=== PATIENT | male | born 1940 | race Caucasian/White ===

== ENCOUNTER 2018-03-03 18:21 | Emergency (ER) | payer MEDICARE ==
--- NOTE | 2018-03-03 19:16 | ED ---
Back Pain - HPI Summary HPI Summary: This is Andrew mccray Waters documenting for attending physician Matthew Parikh MD. This patient is a 77 year old M presenting to [facility] accompanied by his family members with a chief complaint of back pain that began today. The patient states that he went to sit on a park bench today at 1345 and states he had a minor fall. The patient rates the pain 7/10 in severity. Patient reports right sided rib pain. Patient denies head injury and SOB. Patient is blind. Pt denies that he needs work up for other problems despite the triage note. Pt has no other complaints at this time and has not taken any OTC medications at this time. - History of Current Complaint Chief Complaint: EDBackInjuryPain Stated Complaint: FALL/RIB PAIN Time Seen by Provider: 03/03/18 19:07 Hx Obtained From: Patient, Family/Clinical Dietician Onset/Duration: Lasting Hours, Still Present Onset/Duration: Still Present Timing: Constant Back Pain Location: Is Discrete @ - right ribs Severity Initially: Moderate Severity Currently: Moderate Pain Intensity: 7 Pain Scale Used: 0-10 Numeric Associated Signs And Symptoms: Positive: Negative - head injury and SOB. 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 Infectious Disease History: No Infectious Disease History: Denies: Traveled Outside the [place] in Last 30 Days - Family History Known Family History: Positive: Other Family History: Reviewed and non contributory - Social History Lives: With Family Alcohol Use: Rare Substance Use Type: Reports: None Smoking Status (MU): Never Smoked Tobacco Review of Systems Positive: Other - fall Negative: Shortness Of Breath Musculoskeletal: Negative - head injury Positive: Other - right sided rib pain All Other Systems Reviewed And Are Negative: Yes Physical Exam - Summary Physical Exam Summary: Appearance: Well appearing, no pain distress Skin: warm, dry, reflects adequate perfusion, no ecchymosis Head/face: normal Eyes: wearing dark glasses, patient is blind and cannot see shadows of motion. ENT: upper dentures Neck: supple, non-tender Respiratory: CTA, breath sounds present Cardiovascular: RRR, pulses symmetrical Abdomen: non-tender, soft Back: TTP around lower right ribs posteriorly Bowel Sounds: present Musculoskeletal: normal, strength/ROM intact Neuro: normal, sensory motor intact, A&Ox3 Triage Information Reviewed: Yes Vital Signs On Initial Exam: Initial Vitals Temp Pulse Resp BP Pulse Ox 99.1 F 88 19 151/98 85 03/03/18 18:28 03/03/18 18:28 03/03/18 18:28 03/03/18 18:28 03/03/18 18:28 Vital Signs Reviewed: Yes Diagnostics - Vital Signs Vital Signs Temp Pulse Resp BP Pulse Ox 03/03/18 18:43 78 12 139/92 87 03/03/18 18:28 99.1 F 88 19 151/98 85 - Laboratory Lab Statement: Any lab studies that have been ordered have been reviewed, and results considered in the medical decision making process. - Radiology Chest/rib Xray Radiology Interpretation Completed By: Radiologist - NO DISPLACED RIB FRACTURE OR PNEUMOTHORAX. ED physician has reviewed this radiology report. Back Pain Course/Dx - Course Course Of Treatment: Patient with minor fall injuring his right posterior thorax. X-rays obtained of the ribs show no fracture. Patient refused anything for pain to include ibuprofen. He was prescribed cyclobenzaprine to use as needed. He is encouraged to ice the area, take deep breaths every half hour and to follow up closely with his primary care physician. - Diagnoses Differential Diagnosis/HQI/PQRI: Positive: Other - Chest wall injury, rib fracture, muscle strain Provider Diagnoses: Rib contusion Discharge - Sign-Out/Discharge Documenting (check all that apply): Patient Departure - Discharge Plan Condition: Improved Disposition: HOME Prescriptions: Cyclobenzaprine (NF) [Cyclobenzaprine 5 MG (NF)] 5 mg PO TID PRN #10 tab PRN Reason: muscular pain Patient Education Materials: Rib Contusion (ED) Referrals: Albino Hawthorne DO [Primary Care Provider] - Additional Instructions: Ice to area. Deep breathing exercises every half hour. Tylenol, Ibuprofen as needed. Primary care follow-up is encouraged, call tomorrow to schedule appointment. - Billing Disposition and Condition Condition: IMPROVED Disposition: Home Attestation Statement Scribe Attestation: This is Andrew mccray documenting for attending physician Matthew Parikh MD. User Type: Provider with Scribe Provider Attestation: The documentation recorded by the scribe accurately reflects the service I personally performed and the decisions made by me.
--- NOTE | 2018-03-03 19:56 | RAD ---
HISTORY: fall, post R rib injury COMPARISONS: None VIEWS: 5, Frontal view of the chest with frontal and oblique views of the right hemithorax. FINDINGS: There is no displaced rib fracture or pneumothorax. The visualized lungs are clear. IMPRESSION: NO DISPLACED RIB FRACTURE OR PNEUMOTHORAX.
[2018-03-03 21:17] VITALS: BP 135/98
== END 2018-03-03 21:20 | disposition home or self-care (01) ==
LOC: ED 18:21
DX: S20.211A Contusion of right front wall of thorax, initial encounter (principal); W19.XXXA Unspecified fall, initial encounter; Y92.9 Unspecified place or not applicable
CPT/HCPCS: 99282

== ENCOUNTER 2018-04-10 22:59 | Emergency (ER) | payer MEDICARE ==
[2018-04-10] MEDS ORDERED: Ondansetron INJ* 2 MG/ML VIAL IV ONE (23:45)
[2018-04-10] MEDS ORDERED: NS 0.9% 1000 ML* 2,000 ML IV ONE (23:45)
[2018-04-10] MEDS ORDERED: fentaNYL* 50 MCG/ML 2 ML VIAL (100 MCG VIAL) IV ONE (23:45)
--- NOTE | 2018-04-10 23:53 | ED ---
HPI Chest Pain - HPI Summary HPI Summary: The pt is a 77 y.o male [facility] accompanied by his and Simon with chief c/o of left chest pain s/p fall. As per triage report, the pt denies having hit his head and denies LOC. The mechanism of the fall is described as a fall from the bottom of a step ladder at 2030 on 04/10/18. The pt was reported to be outside and fallen down. PMHx of the pt includes legal blindness. The pts hx is reported by his and Pasteur as well as the pt. The pt was able to enter the house after the fall and reported the fall to his . The pt was unable to eat according to his 04/10/18. Medication reported and he stated to be on HTN medication. Pain is aggravated upon inspiration. Neck pain is reported to be chronic and left upper abd pain is novel s/p fall. Other pain reported to be right shoulder pain. Symptoms alleviated by nothing. - History of Current Complaint Chief Complaint: EDTraumaMultiple Hx Obtained From: Patient Onset/Duration: Started Hours Ago - 2029 Timing: Constant Initial Severity: Severe Current Severity: Severe Pain Intensity: 8 Pain Scale Used: 0-10 Numeric Chest Pain Location: Left Lateral Aggravating Factor(s): Other: - Inspiration Alleviating Factor(s): Nothing Associated Signs and Symptoms: Positive: Chest Pain - left sided, Abdominal Pain - left upper, Other: - Right shoulder pain, and Chronic neck pain. 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 Infectious Disease History: No Infectious Disease History: Denies: Traveled Outside the [place] in Last 30 Days - Family History Known Family History: Positive: Other Family History: Reviewed and non contributory - Social History Occupation: Retired Lives: With Family Alcohol Use: Rare Substance Use Type: Reports: None Smoking Status (MU): Never Smoked Tobacco Review of Systems Constitutional: Negative Eyes: Other - Legally Blind ENT: Negative Positive: Chest Pain - Left sided chest pain Respiratory: Negative Positive: Abdominal Pain - left upper Genitourinary: Negative Musculoskeletal: Other - right shoulder pain Positive: Other - Negative head injury Skin: Negative Neurological: Other - Negative LOC Psychological: Normal All Other Systems Reviewed And Are Negative: Yes Physical Exam - Summary Physical Exam Summary: VITAL SIGNS: Reviewed. GENERAL: Patient is a well-developed and nourished (MALE ) who is lying comfortable in the stretcher. Patient is not in any acute respiratory distress. HEAD AND FACE: No signs of trauma. No ecchymosis, hematomas or skull depressions. No sinus tenderness. 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 Ear canals and tympanic membranes are within normal limits. MOUTH: Oropharynx within normal limits. NECK: Supple, trachea is midline, no adenopathy, no JVD, no carotid bruit, no c- spine tenderness, neck with full ROM. CHEST: Tenderness at left upper chest wall LUNGS:Decreased breath sounds CVS: Regular rate and rhythm, S1 and S2 present, no murmurs or gallops appreciated. ABDOMEN: Tenderness over the left upper quadrant EXTREMITIES: FROM in all major joints, no edema, no cyanosis or clubbing. NEURO: Alert and oriented x 3. No acute neurological deficits. Speech is normal and follows commands. Nonfocal. SKIN: Dry and warm Triage Information Reviewed: Yes Vital Signs On Initial Exam: Initial Vitals Temp Pulse Resp BP Pulse Ox 98.3 F 77 20 155/97 89 04/10/18 23:00 04/10/18 23:00 04/10/18 23:00 04/10/18 23:00 04/10/18 23:00 Vital Signs Reviewed: Yes Diagnostics - Vital Signs Vital Signs Temp Pulse Resp BP Pulse Ox 04/10/18 23:00 98.3 F 77 20 155/97 89 - Laboratory Result Diagrams: 04/11/18 00:09 04/11/18 00:09 Lab Statement: Any lab studies that have been ordered have been reviewed, and results considered in the medical decision making process. - Radiology Chest X-ray Radiology Interpretation Completed By: ED Physician - As per ED Physician, the chest x-ray revealed negative findings. The official report is pending. Shoulder X-ray Radiology Interpretation Completed By: ED Physician - As per ED Physician, the shoulder x-ray reveals negative results. The official report is pending. - CT CT C-spine CT Interpretation Completed By: Radiologist - CT C-spine reveals as per radiologist. 1. No evidence of acute fracture involving cervical vertebral bodies or posterior elements. 2. Multilevel degenerative cervical disc disease and facet disease. No significant central canal stenosis. Variable degrees of neural foraminal narrowing secondary to degenerative changes of the uncovertebral joints and facet joints. 3. Scattered small focal brain parenchymal calcification. ED Physician has reviewed this radiology report. CT Brain CT Interpretation Completed By: Radiologist - CT Brain reveals as per radiologist, 1. No evidence of acute intracranial hemorrhage. No intracranial mass or mass effect. 2. Scattered calcified H. and within the brain parenchyma. This involves the lee matter, subcortical white matter, periventricular white matter and in the ependymal surface. This raises the possibility of an infectious process. This may be related to a in utero infection of the TORCH like pathogens. Other considerations would be cysticercosis. 3. 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 4. 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 But may be due to other gliotic cord demyelinating processes. The ED physician has reviewed this radiology report. CT Chest/Abd/Pelvic CT Interpretation Completed By: Radiologist - CT Chest/Abd/Pelvic reveals as per radiologist Aneurysmal dilatation of the ascending thoracic aorta. Linear atelectasis and/or fibrosis in the lower lobes bilaterally. Mild dextrocurvature of the thoracic spine. 2. Multiple hepatic cysts. Right renal cortical cyst. Prostatectomy Bilateral groin surgery. Colonic diverticulosis. Multilevel degenerative disease. The ED Physician has reviewed this radiology report. - EKG 2351 EKG Rhythm: Sinus Rhythm - [address] Segment: Non-Specific EKG Interpretation: Normal [place], and Normal intervals at 2351 Chest Pain Course/Dx - Course Course Of Treatment: The pt is a 77 y/o male with a c/o of left sided chest pain , and right shoulder pain s/p fall. Pt received a hard C-spine collar upon initial evaluation. He also received an EKG at the [facility]. The pt also received CT C-spine, CT Chest/Abd/Pelvic, CT Brain, Shoulder X-ray and [facility]. We discussed the CT, imaging and lab findings with the pt and the family. Upon discussion of the CT chest results that showed signs of aortic aneurysm; we recommended to to follow up with PCP followup as well as cardiothoracic within 1 to 2 days. The pt will be discharged home with the dx of contusion, and ascending aortic aneurysm. We recommened percocot for pain and warm and cold compressions. - Diagnoses Provider Diagnoses: Contusion, Ascending aortic aneurysm Discharge - Sign-Out/Discharge Documenting (check all that apply): Patient Departure - Discharge Home, Post- Discharge Follow Up - Recommendation to visit Cardiothoracic Surgeon - Discharge Plan Condition: Stable Disposition: HOME Prescriptions: oxyCODONE/Acetamin 5/325 MG* [Percocet 5/325 TAB*] 1 tab PO Q6H PRN #20 tab MDD 4 PRN Reason: Pain Patient Education Materials: Thoracic Aortic Aneurysm (ED) Referrals: Albino Hawthorne DO [Primary Care Provider] - Enmanuel ANDERSON,Mason Sun [Medical Doctor] - Additional Instructions: WE RECOMMEND FOLLOW UP WITH PCP AND CARDIOTHORACIC SURGEON WITHIN 1 to 2 DAYS ( Referral). We recommened percocot for pain and warm and cold compressions. RETURN TO THE EMERGENCY DEPARTMENT FOR CHANGING OR WORSENING SYMPTOMS. - Attestation Statements Document Initiated by Scribe: Yes Documenting Scribe: Moi Terrazas Provider For Whom Scribe is Documenting (Include Credential): Dr. Rosa Isela Beltran Scribe Attestation: Moi Dean, jenny for Dr. Rosa Isela Beltran on 04/11/18 at 0332.
[2018-04-11 00:41] LABS: ABS Basophils 0 10^3/ul (0-0.2); ABS Eosinophils 0 10^3/ul (0-0.6); ABS Lymphocytes 0.8 10^3/ul (1.0-4.8); ABS Monocytes 0.7 10^3/ul (0-0.8); ABS Neutrophils 12.9 10^3/ul (1.5-7.7); ABS Nucleated RBC 0 10^3/ul; Eosinophil % 0 % (0-6); Hematocrit 47 % (42-52); Hemoglobin 15.6 g/dl (14.0-18.0); INR 0.96 (0.77-1.02); Lymphocyte % 5.4 % (25-47); Mean Corpuscular HGB Conc 33 g/dl (31-36); Mean Corpuscular Hemoglobin 31 pg (27-31); Mean Corpuscular Volume 94 fL (80-94); Mean Platelet Volume 7.5 um3 (7.4-10.4); Nucleated Red Blood Cells % 0.1; Platelet Count 229 10^3/ul (150-450); Red Blood Count 4.99 10^6/ul (4.00-5.40); Red Cell Distribution Width 14 % (10.5-15); White Blood Count 14.3 10^3/ul (3.5-10.8)
[2018-04-11] MEDS ORDERED: fentaNYL* 50 MCG/ML 2 ML VIAL (100 MCG VIAL) IV SLOW PU ONE (00:50)
[2018-04-11] MEDS ORDERED: Iohexol 300* (CONTRAST) 10 ML SDV IV ONE (01:20)
--- NOTE | 2018-04-11 02:07 | RAD ---
EXAM: CT Chest With Intravenous Contrast CLINICAL HISTORY: 77 years old, male; Injury or trauma; Fall TECHNIQUE: Axial computed tomography images of the chest with intravenous contrast. All CT scans at this facility use at least one of these dose optimization techniques: automated exposure control; mA and/or kV adjustment per patient size (includes targeted exams where dose is matched to clinical indication); or iterative reconstruction. Coronal and sagittal reformatted images were created and reviewed. CONTRAST: 85 mL of OMNI administered intravenously. COMPARISON: No relevant prior studies available. FINDINGS: Lungs: There is increased haziness of the dependent portions of the lower lobes suggesting dependent congestion. Linear atelectasis and/or fibrosis is seen in the lower lobes bilaterally. Pleural space: Unremarkable. No pneumothorax. No significant effusion. Heart: Unremarkable. No cardiomegaly. No significant pericardial effusion. Bones/joints: There is mild dextrocurvature of the thoracic spine. There is narrowing of the intervertebral disc space at T6-7 with ankylosis. No acute fracture. No dislocation. Soft tissues: Unremarkable. Vasculature: There is aneurysmal dilatation of the ascending thoracic aorta which has diameters of 4.5 x 5.3 cm Lymph nodes: Unremarkable. No enlarged lymph nodes. IMPRESSION: Aneurysmal dilatation of the ascending thoracic aorta. Linear atelectasis and/or fibrosis in the lower lobes bilaterally. Mild dextrocurvature of the thoracic spine. EXAM: CT Abdomen and Pelvis With Intravenous Contrast CLINICAL HISTORY: 77 years old, male; Injury or trauma; Fall TECHNIQUE: Axial computed tomography images of the abdomen and pelvis with intravenous contrast. All CT scans at this facility use at least one of these dose optimization techniques: automated exposure control; mA and/or kV adjustment per patient size (includes targeted exams where dose is matched to clinical indication); or iterative reconstruction. Coronal and sagittal reformatted images were created and reviewed. CONTRAST: 85 mL of OMNI administered intravenously. 85 mL of OMNI administered intravenously. COMPARISON: No relevant prior studies available. FINDINGS: Lung bases: Unremarkable. No mass. No consolidation. ABDOMEN: Liver: There are multiple low density lesions scattered throughout the liver. The largest lesion is lobulated in shape and lies in the right lobe of the liver with a maximum measurement of 6.6 cm. Gallbladder and bile ducts: Unremarkable. No calcified stones. No ductal dilation. Pancreas: Unremarkable. No mass. No ductal dilation. Spleen: Unremarkable. No splenomegaly. Adrenals: Unremarkable. No mass. Kidneys and ureters: Right renal cortical cyst is identified measuring approximately 1 cm. No hydronephrosis. Stomach and bowel: Colonic diverticula are demonstrated but there is no evidence for acute diverticulitis. No obstruction. PELVIS: Appendix: The appendix is normal in appearance. Bladder: Unremarkable. No mass. Reproductive: The patient status post prostatectomy. ABDOMEN and PELVIS: Intraperitoneal space: Unremarkable. No free air. No significant fluid collection. Bones/joints: Multilevel degenerative disc disease is noted. No acute fracture. No dislocation. Soft tissues: Surgical clips are seen in the groin areas bilaterally. Vasculature: Arteriosclerotic changes are identified. No abdominal aortic aneurysm. Lymph nodes: Unremarkable. No enlarged lymph nodes. IMPRESSION: Multiple hepatic cysts. Right renal cortical cyst. Prostatectomy Bilateral groin surgery. Colonic diverticulosis. Multilevel degenerative disease.
--- NOTE | 2018-04-11 02:18 | RAD ---
EXAM: CT Head Without Intravenous Contrast CLINICAL HISTORY: 77 years old, male; Injury or trauma; Fall; Initial encounter; Abrasion; Not specified TECHNIQUE: Axial computed tomography images of the head/brain without intravenous contrast. All CT scans at this facility use at least one of these dose optimization techniques: automated exposure control; mA and/or kV adjustment per patient size (includes targeted exams where dose is matched to clinical indication); or iterative reconstruction. COMPARISON: No relevant prior studies available. FINDINGS: Brain: No evidence of acute intracranial hemorrhage. No intracranial mass or mass effect. Multiple calcified densities located in the lee matter subcortical white matter and periventricular white matter. Geographic areas of diminished density in the subcortical and periventricular white matter. Focal hypodensities located in the right thalamus. Linear hypodensity located in the right and in the inferior aspect the left cerebellar hemisphere. Ventricles: Unremarkable. No ventriculomegaly. Bones/joints: Unremarkable. No acute fracture. Soft tissues: Unremarkable. Vasculature: Vascular calcification. Sinuses: Unremarkable as visualized. No acute sinusitis. Mastoid air cells: Unremarkable as visualized. No mastoid effusion. Orbits: Right globe prosthesis. Phthisical left globe. IMPRESSION: 1. No evidence of acute intracranial hemorrhage. No intracranial mass or mass effect. 2. Scattered calcified H. and within the brain parenchyma. This involves the lee matter, subcortical white matter, periventricular white matter and in the ependymal surface. This raises the possibility of an infectious process. This may be related to a in utero infection of the TORCH like pathogens. Other considerations would be cysticercosis. 3. 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 4. 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 But may be due to other gliotic cord demyelinating processes.
--- NOTE | 2018-04-11 02:22 | RAD ---
EXAM: CT Cervical Spine Without Intravenous Contrast CLINICAL HISTORY: 77 years old, male; Injury or trauma; Fall; Initial encounter; Abrasion TECHNIQUE: Axial computed tomography images of the cervical spine without intravenous contrast. All CT scans at this facility use at least one of these dose optimization techniques: automated exposure control; mA and/or kV adjustment per patient size (includes targeted exams where dose is matched to clinical indication); or iterative reconstruction. Coronal and sagittal reformatted images were created and reviewed. COMPARISON: No relevant prior studies available. FINDINGS: Vertebrae: No evidence of acute fracture involving cervical vertebral bodies or posterior elements. Discs/spinal canal/neural foramina: Multilevel degenerative cervical disc disease and facet disease. No central canal stenosis. Variable degrees of neural foramina narrowing secondary degenerative changes of the uncovertebral joints and facet joints. Soft tissues: Unremarkable. Lung apices: Unremarkable as visualized. Other findings: The head is rotated to the right side. CT of lower brain and posterior fossa: Punctate calcification located in the brain parenchyma. IMPRESSION: 1. No evidence of acute fracture involving cervical vertebral bodies or posterior elements. 2. Multilevel degenerative cervical disc disease and facet disease. No significant central canal stenosis. Variable degrees of neural foraminal narrowing secondary to degenerative changes of the uncovertebral joints and facet joints. 3. Scattered small focal brain parenchymal calcification.
[2018-04-11 02:23] LABS: Urine Appearance Clear; Urine Blood Negative (Negative); Urine Color Yellow; Urine Ketones 1+ (Negative); Urine Protein Negative (Negative); Urine Specific Gravity 1.026 (1.010-1.030); Urine Urobilinogen Negative (Negative)
[2018-04-11 03:39] VITALS: BP 155/99
--- NOTE | 2018-04-11 07:54 | RAD ---
INDICATION: Fall. COMPARISON: There are no relevant prior studies available for comparison. TECHNIQUE: A portable view of the chest was obtained. FINDINGS: Cardiac and mediastinal contours appear to be within normal limits. The lungs are underinflated. There are small bibasilar infiltrates suggestive of atelectasis less likely pneumonia. No pleural effusion is seen. There appears to be a interposition of the colon and small bowel between the right hemidiaphragm and liver. IMPRESSION: LOW LUNG VOLUMES SMALL BIBASILAR INFILTRATES SUGGESTIVE OF ATELECTASIS LESS LIKELY PNEUMONIA. R1
--- NOTE | 2018-04-11 07:54 | RAD ---
INDICATION: Right shoulder pain after a fall COMPARISON: None. TECHNIQUE: 2 views of the right shoulder were obtained. FINDINGS: The adequately corticated bones are in normal alignment. Joint spaces appear maintained. No fracture, dislocation or focal bony abnormality is seen. IMPRESSION: Normal radiograph of the right shoulder. If the patient's symptoms persist, follow-up imaging is recommended. R0
--- NOTE | 2018-04-11 17:33 | ED ---
Progress - Progress Note Progress Note: Patient's final chest x-ray reveals "impression: Low lung volumes small bibasilar infiltrate suggestive of atelectasis less likely pneumonia". Patient was seen for fall down stairs and this chest x-ray was ordered to assess trauma. He also had a lung CT which was negative. Patient did not have a fever nor chills at time of visit and has not had any respiratory symptoms leading up to this fall per , Reyna, who I spoke with today. She denies that he's had a fever at home nor has he had any difficulty with breathing or coughing. She reports he's got a follow-up with his primary next week but will return to the emergency department if patient develops danger signs and symptoms. She does not believe he has any signs or symptoms of pneumonia at this time but she is aware to keep an eye out for this condition. Course/Dx - Course Course Of Treatment: The pt is a 77 y/o male with a c/o of left sided chest pain , and right shoulder pain s/p fall. Pt received a hard C-spine collar upon initial evaluation. He also received an EKG at the [facility]. The pt also received CT C-spine, CT Chest/Abd/Pelvic, CT Brain, Shoulder X-ray and Chest X-ray in the [facility]. We discussed the CT, imaging and lab findings with the pt and the family. Upon discussion of the CT chest results that showed signs of aortic aneurysm; we recommended to to follow up with PCP followup as well as cardiothoracic within 1 to 2 days. The pt will be discharged home with the dx of contusion, and ascending aortic aneurysm. We recommened percocot for pain and warm and cold compressions. - Diagnoses Provider Diagnoses: Contusion, Ascending aortic aneurysm Discharge - Sign-Out/Discharge Documenting (check all that apply): Post-Discharge Follow Up - Discharge Plan Condition: Stable Disposition: HOME Prescriptions: oxyCODONE/Acetamin 5/325 MG* [Percocet 5/325 TAB*] 1 tab PO Q6H PRN #20 tab MDD 4 PRN Reason: Pain Patient Education Materials: Thoracic Aortic Aneurysm (ED) Referrals: Enmanuel ANDERSON,Mason Sun [Medical Doctor] - Albino Hawthorne DO [Primary Care Provider] - Additional Instructions: WE RECOMMEND FOLLOW UP WITH PCP AND CARDIOTHORACIC SURGEON WITHIN 1 to 2 DAYS ( Referral). We recommened percocot for pain and warm and cold compressions. RETURN TO THE EMERGENCY DEPARTMENT FOR CHANGING OR WORSENING SYMPTOMS. - Billing Disposition and Condition Condition: STABLE Disposition: Home
== END 2018-04-11 03:38 | disposition home or self-care (01) ==
LOC: ED 22:59
DX: I71.9 Aortic aneurysm of unspecified site, without rupture (principal); S40.011A Contusion of right shoulder, initial encounter; M25.511 Pain in right shoulder; W19.XXXA Unspecified fall, initial encounter; Y92.9 Unspecified place or not applicable
CPT/HCPCS: 36415; 70450; 71045; 71260; 72125; 74177; 80053; 81003; 82150; 82550; 83605; 83690; 85025; 85610; 86850; 86900; 86901; 93005; 96374; 96375; 99284; J2405; J3010; Q9967

== ENCOUNTER 2019-01-28 11:32 | Emergency (ER) | payer MEDICARE ==
--- OUTSIDE RECORDS SUMMARY | 2019-01-28 13:19 | XMS REPORT | Continuity of Care Document ---
:1940 External Reference #:[id number] Author Name Albino Hawthorne D.O. Address [address] [place] [address] Care Team Providers Name Role Phone HCP/LW on file Primary Care Physician Unavailable Payers Date Identification Numbers Payment Provider Subscriber Effective: 2005 Policy Number: [id number] [employer] Yun Sadler PayID: [id number] [address] [place] [id number] Problems Active Problems Provider Date History of malignant neoplasm of prostate Devendra Sharma M.D. Onset: 10/2008 Slow transit constipation Devendra Sharma M.D. Onset: 05/11/2011 Essential hypertension Devendra Sharma M.D. 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 Onset: 03/19/2009 Inactive: 11/03/2010 Benign essential hypertension Devendra Sharma M.D. Onset: 12/21/2011 Inactive: 12/18/2016 Family History Date Family Member(s) Observation Comments General Cancer Father and mother General Stroke Mother TIA Father in 1976 at 65 years old from heart attack. Mother in 2002 at the age of 90 First Daughter Jenny Hargrove First Daughter 04-06-71 Second Daughter Fide Rios Second Daughter 04-07-74 Third Daughter Deedee Sadler Third Daughter 06-04-77 Number of Siblings 1 brother and 2 sisters, in 2016 one of pt's sister from Leukemia at ~ age 69 First Brother due to Hole In His Heart At 4 () Years Old First Brother Keith Social History Type Date Description Comments Sex Unknown Marital Status Patient is His , Reyna, June 2018 General Highest level of education is 12th grade. 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 Does not drink alcohol or use drugs. Moderate amount of sun exposure. Does not use sunscreen. Tobacco Use Start: Unknown Tobacco Of Any Kind Denies Use Tobacco Use Reviewed: 06/29/14 Denies Cigarette Use Tobacco Use Reviewed: 12/28/14 Non Smoker Smoking Status Reviewed: 01/10/19 Non Smoker Allergies, Adverse Reactions, Alerts Description No Known Drug Allergies Medications Active Medications SIG Qnty Indications Ordering Date Provider Metoprolol Succinate take 1 tablet by Unknown 06/03/2018 ER mouth daily 25mg Tablets ER 24HR Vitamin D3 1 by mouth daily Unknown 03/07/2018 1200Units when no sun Capsules Shingrix 1 shot repeat 1units Albino Hawthorne, 02/07/2018 50mcg Suspension once in 2 months D.O. Rec Red Yeast Rice take one capsule Unknown 02/06/2018 600mg by mouth daily Capsules Lisinopril take 1 tablet by 90tabs I10 Albino Hawthorne, 07/05/2017 20mg Tablets mouth once daily D.O. for high blood pressure Aspirin prn 1-2 week. Devendra Calderon 12/28/2014 81mg Tablets Hussein Sharma Glucosamine 1500 1 a day Devendra Calderon 05/28/2012 Complex Hussein Sharma 1500Com Capsules Magnesium Oxide OTC K59.01 Devendra Calderon 05/11/2011 250mg Hussein Sharma Tablets Metamucil uses po prn 1 K59.01 Devendra Calderon 05/11/2011 48.57% Powder tsp - urged to Hussein Sharma use 1 tbsp prn Multivitamins 1 po qd 100tabs Unknown 04/24/2010 Tablets Vitamin C prn Unknown 04/24/2010 Tabs Zinc prn Unknown 04/24/2010 Coq10 Unknown History Medications Oxycodone-Acetaminophen take 1 tablet by Unknown 04/10/2018 - 5-325mg Tablets mouth every 6 04/21/2018 hours if needed for pain Red Yeast Rice every other day Devendra Calderon 07/03/2016 - 600mg Capsules Hussein Sharma 02/06/2018 Lisinopril 1 by mouth every 90tabs I10 Devendra Calderon 07/03/2016 - 10mg Tablets day Hussein Sharma 07/05/2017 Hydrochlorothiazide 1/2 every day 90tabs I10 Devendra Calderon 12/26/2012 - 25mg Tablets for bp Hussein Sharma 06/05/2016 Triamcinolone Acetonide apply to area 30gm E906.3 Devendra Calderon 12/07/2012 - 0.5% Ointment bid to tid prn Hussein Sharma 03/07/2013 rash HCTZ 25mg 1 qd for blood 90tabs 401.1 Devendra Calderon 12/20 - Tablets pressure Hussein Sharma 12/26/2012 Red Yeast Rice Extract Devendra Calderon 05/11/2011 - 600mg Capsules Hussein Sharma 07/03/2016 Cephalexin 1 tablet bid x 7 14caps 682.6 Silcopb, 12/27/2009 - 500mg Capsules days Hussein Montague 04/24/2010 HCTZ 25mg 1 qd for blood 90tabs 401.1 Devendra Calderon 09/09 - Tablets pressure with Hussein Sharma 11/02/2010 orange juice Acetazolamide as prescribed by 365.9 Jose R, 05/11/2009 - 250mg Tablets asher Medina, 05/21/2009 post op glaucoma Vitamins Multiple Unknown - Tablets 03/18/2009 Prednisolone ac 1% Eye Drop Unknown - Solution 05/10/2011 Atropine Sulfate 1 drop in eye to Unknown - 1% Solution dry secretions 05/10/2011 prn when directed by Magnesium Citrate 1 po at Unknown - 125mg Capsule suppertime 12/27/2014 Immunizations CPT Code Status Date Vaccine Lot # [id number] Given 03/08/2018 Influenza Vaccine Split Virus Preservative Free Im [id number] Use [id number] Given 07/05/2017 Influenza Virus Vaccine, Quadrivalent, Split, [id number] Preservative Free 30496 Given 07/03/2016 Influenza Virus Vaccine, Quadrivalent, Split, [id number] Preservative Free 94702 Given 12/28/2014 Prevnar 13 [id number] 34246 Given 06/29/2014 Adacel or Boostrix, TDaP [id number] 42678 Given 06/29/2014 Influenza Virus Vaccine, Quadrivalent, Split, [id number] Preservative Free 34741 Given 04/22/2009 Pneumococcal Immunization [id number] 08263 Given 03/19/2009 Td Immunization [id number] U-Flu Refused 07/01/2015 Influenza,Unspecified [id number] Refused 06/29/2014 Flu, Split Virus 3Yrs 90094 Refused 06/27/2013 Flu, Split Virus 3Yrs 10265 Refused 05/31/2012 Flu, Split Virus 3Yrs 61654 Refused 05/11/2011 Flu, Split Virus 3Yrs 21458 Refused 04/25/2010 Flu, Split Virus 3Yrs 12968 Refused 04/22/2009 Flu, Split Virus 3Yrs Vital Signs Date Vital Result Comment 01/10/2019 12:14pm BP Systolic 110 mmHg BP Diastolic 80 mmHg Weight 150.00 lb with shoes 12/27/2018 2:05pm BP Systolic 118 mmHg BP Diastolic 80 mmHg Height 64 inches 5'4" w/shoes Weight 153.00 lb w/shoes BMI (Body Mass Index) 26.3 kg/m2 07/17/2018 2:12pm BP Systolic 116 mmHg BP Diastolic 68 mmHg Height 64 inches 5'4" Weight 130.00 lb BMI (Body Mass Index) 22.3 kg/m2 04/23/2018 2:43pm BP Systolic 128 mmHg BP Diastolic 84 mmHg 04/12/2018 1:57pm BP Systolic 110 mmHg BP Diastolic 74 mmHg Heart Rate 66 /min O2 % BldC Oximetry 90 % Weight 152.00 lb with shoes 03/08/2018 2:31pm BP Systolic 108 mmHg BP Diastolic 74 mmHg O2 % BldC Oximetry 94 % 02/07/2018 3:34pm BP Systolic 106 mmHg BP Diastolic 62 mmHg Weight 147.00 lb 07/05/2017 2:20pm BP Systolic 142 mmHg BP Diastolic 82 mmHg BP Systolic Recheck 126 mmHg recheck ra BP Diastolic Recheck 88 mmHg recheck ra Height 63 inches 5'3" Weight 148.00 lb BMI (Body Mass Index) 26.2 kg/m2 12/18/2016 2:04pm BP Systolic 112 mmHg BP Diastolic 61 mmHg Heart Rate 65 /min Respiratory Rate 16 /min Weight 147.00 lb 07/03/2016 11:02am BP Systolic 152 mmHg BP Diastolic 88 mmHg Height 64.75 inches 5'4.75" Weight 146.00 lb BMI (Body Mass Index) 24.5 kg/m2 12/30/2015 11:20am BP Systolic 130 mmHg BP Diastolic 82 mmHg Height 63.25 inches 5'3.25" Weight 146.00 lb BMI (Body Mass Index) 25.7 kg/m2 07/01/2015 10:54am BP Systolic 128 mmHg k BP Diastolic 84 mmHg k Heart Rate 80 /min Respiratory Rate 18 /min Weight 143.00 lb 12/28/2014 1:01pm BP Systolic 104 mmHg k BP Diastolic 76 mmHg k Heart Rate 70 /min Respiratory Rate 16 /min Height 63.5 inches 5'3.50" Weight 146.00 lb BMI (Body Mass Index) 25.5 kg/m2 06/29/2014 10:49am BP Systolic 140 mmHg BP Diastolic 80 mmHg Height 63.75 inches 5'3.75" Weight 149.00 lb BMI (Body Mass Index) 25.8 kg/m2 12/22/2013 11:33am BP Systolic 121 mmHg wk BP Diastolic 80 mmHg wk Heart Rate 70 /min Respiratory Rate 16 /min Height 64.50 inches 5'4.50" Weight 154.00 lb BMI (Body Mass Index) 26.0 kg/m2 06/27/2013 10:55am BP Systolic 124 mmHg BP Diastolic 88 mmHg Heart Rate 70 /min Respiratory Rate 17 /min Height 65 inches 5'5" Weight 154.00 lb BMI (Body Mass Index) 25.6 kg/m2 12/26/2012 11:26am BP Systolic 106 mmHg BP Diastolic 68 mmHg Weight 146.00 lb 12/07/2012 11:29am BP Systolic 128 mmHg BP Diastolic 80 mmHg Body Temperature 97.5 F Height 64 inches 5'4" Weight 149.00 lb BMI (Body Mass Index) 25.6 kg/m2 05/31/2012 11:02am BP Systolic 140 mmHg BP Diastolic 88 mmHg BP Systolic Recheck 130 mmHg BP Diastolic Recheck 84 mmHg Heart Rate 70 /min Respiratory Rate 16 /min Height 64 inches 5'4" Weight 154.00 lb BMI (Body Mass Index) 26.4 kg/m2 Last Menstrual Period 0 12/21/2011 11:52am BP Systolic 140 mmHg BP Diastolic 96 mmHg BP Systolic Recheck 150 mmHg 143 96 large adult cuff BP Diastolic Recheck 95 mmHg 143 96 large adult cuff Heart Rate 70 /min rrr Respiratory Rate 16 /min Height 65 inches 5'5" Weight 153.00 lb BMI (Body Mass Index) 25.5 kg/m2 Last Menstrual Period 0 05/11/2011 1:47pm BP Systolic 138 mmHg BP Diastolic 90 mmHg BP Systolic Recheck 138 mmHg BP Diastolic Recheck 88 mmHg Heart Rate 98 /min Height 65 inches 5'5" Weight 155.00 lb BMI (Body Mass Index) 25.8 kg/m2 11/03/2010 11:54am BP Systolic 164 mmHg BP Diastolic 110 mmHg BP Systolic Recheck 150 mmHg BP Diastolic Recheck 94 mmHg Heart Rate 70 /min Respiratory Rate 17 /min 04/25/2010 11:46am BP Systolic 128 mmHg BP Diastolic 78 mmHg Heart Rate 70 /min Respiratory Rate 16 /min 12/27/2009 2:35pm BP Systolic 110 mmHg BP Diastolic 70 mmHg Body Temperature 97.6 F Weight 152.00 lb Last Menstrual Period 0 12/16/2009 1:49pm BP Systolic 106 mmHg BP Diastolic 70 mmHg Heart Rate 69 /min Body Temperature 98.2 F Weight 149.00 lb 09/14/2009 4:11pm BP Systolic 132 mmHg BP Diastolic 90 mmHg BP Systolic Recheck 129 mmHg BP Diastolic Recheck 88 mmHg Heart Rate 70 /min Respiratory Rate 16 /min Weight 157.00 lb Last Menstrual Period 0 09/09/2009 12:25pm BP Systolic 155 mmHg BP Diastolic 93 mmHg BP Systolic Recheck 163 mmHg BP Diastolic Recheck 93 mmHg Heart Rate 70 /min Respiratory Rate 16 /min 07/22/2009 1:20pm BP Systolic 130 mmHg BP Diastolic 86 mmHg BP Systolic Recheck 133 mmHg BP Diastolic Recheck 84 mmHg Heart Rate 70 /min Respiratory Rate 16 /min Body Temperature 98.2 F Weight 159.00 lb Last Menstrual Period 0 05/11/2009 11:03am BP Systolic 150 mmHg 140/90 rt. 130/80 lt arm BP Diastolic 92 mmHg 140/90 rt. 130/80 lt arm Body Temperature 98.4 F Weight 157.00 lb 04/22/2009 9:37am BP Systolic 146 mmHg BP Diastolic 78 mmHg Heart Rate 60 /min Body Temperature 97.7 F Weight 152.00 lb Last Menstrual Period 0 03/19/2009 2:52pm BP Systolic 130 mmHg BP Diastolic 90 mmHg BP Systolic Recheck 146 mmHg BP Diastolic Recheck 78 mmHg Heart Rate 70 /min Respiratory Rate 16 /min Weight 157.00 lb 08/16/2005 1:33pm BP Systolic 140 mmHg BP Diastolic 80 mmHg Height 64.25 inches 5'4.25" Weight 154.50 lb BMI (Body Mass Index) 26.3 kg/m2 Results Test Date Facility Test Result H/L Range Note Basic Metabolic Panel 12/27/2018 [facility] Sodium 141 mmol/L N 135- 145 [phone] Potassium 4.5 mmol/L N 3.5-5.0 Chloride 108 mmol/L N 101-111 Co2 Carbon Dioxide 26 mmol/L N 22-32 Anion Gap 7 mmol/L N 2-11 Glucose 102 mg/dL High 70-100 Blood Urea Nitrogen 24 mg/dL N 6-24 Creatinine 0.91 mg/dL N 0.67-1.17 BUN/Creatinine Ratio 26.4 High 8-20 Calcium 9.2 mg/dL N 8.6-10.3 Egfr Non- 80.6 >60 Egfr 97.5 >60 1 Basic Metabolic Panel 07/18/2018 [facility] Sodium 141 mmol/L N 135- 145 2 [phone] Potassium 4.5 mmol/L N 3.5-5.0 Chloride 107 mmol/L N 101-111 Co2 Carbon Dioxide 27 mmol/L N 22-32 Anion Gap 7 mmol/L N 2-11 Glucose 92 mg/dL N 70-100 Blood Urea Nitrogen 20 mg/dL N 6-24 Creatinine 0.99 mg/dL N 0.67-1.17 BUN/Creatinine Ratio 20.2 High 8-20 Calcium 9.5 mg/dL N 8.6-10.3 Egfr Non- 73.1 >60 Egfr 88.5 >60 3 Laboratory test finding 07/18/2018 [facility] Ast (Sgot) 14 U/L N 13- 39 4 [phone] Lipid Profile 07/18/2018 [facility] Triglycerides 80 mg/dL 5 (Trig/Chol/HDL) [phone] Cholesterol 208 mg/dL 6 HDL Cholesterol 65.0 mg/dL 7 LDL Cholesterol 127 mg/dL 8 Laboratory test 07/18/2018 [facility] PSA Screening < 0.008 ng/mL N 0 -4.000 9 finding [phone] Laboratory test 07/17/2018 [facility] PSA Diagnostic < 0.008 ng/mL N 0-4.000 10 finding [phone] TSH (Thyroid Stim Horm) 1.56 mcIU/mL N 0.34-5.60 Quantiferon Gold 07/17/2018 [facility] QuantiFERON-Tb Gold Negative Negative 11 TB [phone] Plus TB1 Ag minus Nil Result 0 IU/mL TB2 Ag minus Nil Result 0 IU/mL TB Mitogen minus Nil Result 6.48 IU/mL TB Nil Result 0.01 IU/mL 12 Laboratory test 07/17/2018 [facility] Vitamin B12 457 pg/mL N 180- 914 13 finding [phone] CBC Auto Diff 07/17/2018 [facility] White Blood 6.4 10^3/uL N 3.5- 10.8 [phone] Count Red Blood Count 5.39 10^6/uL N 4.00-5.40 Hemoglobin 17.0 g/dL N 14.0-18.0 Hematocrit 51 % N 42-52 Mean Corpuscular Volume 95 fL High 80-94 Mean Corpuscular Hemoglobin 31 pg N 27-31 Mean Corpuscular HGB Conc 33 g/dL N 31-36 Red Cell Distribution Width 13 % N 10.5-15 Platelet Count 274 10^3/uL N 150-450 Mean Platelet Volume 7.6 fL N 7.4-10.4 Abs Neutrophils 3.6 10^3/uL N 1.5-7.7 Abs Lymphocytes 2.2 10^3/uL N 1.0-4.8 Abs Monocytes 0.5 10^3/uL N 0-0.8 Abs Eosinophils 0.1 10^3/uL N 0-0.6 Abs Basophils 0.1 10^3/uL N 0-0.2 Abs Nucleated RBC 0 10^3/uL Granulocyte % 55.7 % Lymphocyte % 33.6 % Monocyte % 8.4 % Eosinophil % 1.4 % Basophil % 0.9 % Nucleated Red Blood Cells % 0.1 Comp Metabolic Panel 07/17/2018 [facility] Sodium 142 mmol/L N 135- 145 [phone] Potassium 4.3 mmol/L N 3.5-5.0 Chloride 106 mmol/L N 101-111 Co2 Carbon Dioxide 28 mmol/L N 22-32 Anion Gap 8 mmol/L N 2-11 Glucose 91 mg/dL N 70-100 Blood Urea Nitrogen 19 mg/dL N 6-24 Creatinine 1.08 mg/dL N 0.67-1.17 BUN/Creatinine Ratio 17.6 N 8-20 Calcium 9.2 mg/dL N 8.6-10.3 Total Protein 6.8 g/dL N 6.4-8.9 Albumin 4.0 g/dL N 3.2-5.2 Globulin 2.8 g/dL N 2-4 Albumin/Globulin Ratio 1.4 N 1-3 Total Bilirubin 0.80 mg/dL N 0.2-1.0 Alkaline Phosphatase 66 U/L N 34-104 Alt 12 U/L N 7-52 Ast 13 U/L N 13-39 Egfr Non- 66.1 >60 Egfr 80.0 >60 14 Urinalysis Profile 04/11/2018 [facility] Urine Color Yellow [phone] Urine Appearance Clear Urine Specific Lyndon 1.026 N 1.010-1.030 Urine pH 5.0 N 5-9 Urine Urobilinogen Negative Negative Urine Ketones 1+ Abnormal Negative Urine Protein Negative Negative Urine Leukocytes Negative Negative Urine Blood Negative Negative * * Abnormal Negative 15 Urine Nitrite Negative Negative Urine Bilirubin Negative Negative Urine Glucose Negative Negative Laboratory test 04/11/2018 [facility] Lactic Acid 1.2 mmol/L N 0.5- 2.0 16 finding [phone] Inr/Protime 04/11/2018 [facility] Inr 0.96 N 0.77-1.02 [phone] Laboratory test 04/11/2018 [facility] Amylase 47 U/L N 29-103 finding [phone] Lipase < 10 U/L Low 11.0-82.0 Creatine Kinase(CK) 409 U/L High 10-223 Comp Metabolic Panel 04/11/2018 [facility] Sodium 140 mmol/L N 135- 145 [phone] Potassium 4.0 mmol/L N 3.5-5.0 Chloride 107 mmol/L N 101-111 Co2 Carbon Dioxide 23 mmol/L N 22-32 Anion Gap 10 mmol/L N 2-11 Glucose 124 mg/dL High 70-100 Blood Urea Nitrogen 17 mg/dL N 6-24 Creatinine 0.88 mg/dL N 0.67-1.17 BUN/Creatinine Ratio 19.3 N 8-20 Calcium 9.1 mg/dL N 8.6-10.3 Total Protein 7.0 g/dL N 6.4-8.9 Albumin 4.1 g/dL N 3.2-5.2 Globulin 2.9 g/dL N 2-4 Albumin/Globulin Ratio 1.4 N 1-3 Total Bilirubin 1.00 mg/dL N 0.2-1.0 Alkaline Phosphatase 66 U/L N 34-104 Alt 19 U/L N 7-52 Ast 25 U/L N 13-39 Egfr Non- 84.0 >60 Egfr 101.6 >60 17 CBC Auto Diff 04/11/2018 [facility] White Blood 14.3 10^3/uL High 3.5 -10.8 [phone] Count Red Blood Count 4.99 10^6/uL N 4.00-5.40 Hemoglobin 15.6 g/dL N 14.0-18.0 Hematocrit 47 % N 42-52 Mean Corpuscular Volume 94 fL N 80-94 Mean Corpuscular Hemoglobin 31 pg N 27-31 Mean Corpuscular HGB Conc 33 g/dL N 31-36 Red Cell Distribution Width 14 % N 10.5-15 Platelet Count 229 10^3/uL N 150-450 Mean Platelet Volume 7.5 um3 N 7.4-10.4 Abs Neutrophils 12.9 10^3/uL High 1.5-7.7 Abs Lymphocytes 0.8 10^3/uL Low 1.0-4.8 Abs Monocytes 0.7 10^3/uL N 0-0.8 Abs Eosinophils 0 10^3/uL N 0-0.6 Abs Basophils 0 10^3/uL N 0-0.2 Abs Nucleated RBC 0 10^3/uL Granulocyte % 89.7 % High 38-83 Lymphocyte % 5.4 % Low 25-47 Monocyte % 4.7 % N 0-7 Eosinophil % 0 % N 0-6 Basophil % 0.2 % N 0-2 Nucleated Red Blood Cells % 0.1 Type & Screen 04/11/2018 [facility] Patient Blood Type O Positive [phone] Antibody Screen NEGATIVE Basic Metabolic Panel 02/07/2018 [facility] Sodium 139 mmol/L N 135- 145 [phone] Potassium 4.4 mmol/L N 3.5-5.0 Chloride 106 mmol/L N 101-111 Co2 Carbon Dioxide 25 mmol/L N 22-32 Anion Gap 8 mmol/L N 2-11 Glucose 96 mg/dL N 70-100 Blood Urea Nitrogen 17 mg/dL N 6-24 Creatinine 0.86 mg/dL N 0.67-1.17 BUN/Creatinine Ratio 19.8 N 8-20 Calcium 9.0 mg/dL N 8.6-10.3 Egfr Non- 86.2 >60 Egfr 104.3 >60 18 Basic Metabolic Panel 06/29/2017 [facility] Sodium 138 mmol/L N 133- 145 [phone] Potassium 4.2 mmol/L N 3.5-5.0 Chloride 109 mmol/L N 101-111 Co2 Carbon Dioxide 20 mmol/L Low 22-32 Anion Gap 9 mmol/L N 2-11 Glucose 87 mg/dL N 70-100 Blood Urea Nitrogen 33 mg/dL High 6-24 Creatinine 1.04 mg/dL N 0.67-1.17 BUN/Creatinine Ratio 31.7 High 8-20 Calcium 8.9 mg/dL N 8.6-10.3 Egfr Non- 69.3 >60 Egfr 89.1 >60 19 Laboratory test finding 06/29/2017 [facility] Ast (Sgot) 18 U/L N 13- 39 [phone] PSA Screening < 0.008 ng/mL N 0-4.000 20 Basic Metabolic Panel 07/07/2016 [facility] Sodium 138 mmol/L N 133- 145 [phone] Potassium 4.8 mmol/L N 3.5-5.0 Chloride 107 mmol/L N 101-111 Co2 Carbon Dioxide 27 mmol/L N 22-32 Anion Gap 4 mmol/L N 2-11 Glucose 88 mg/dL N 70-100 Blood Urea Nitrogen 17 mg/dL N 6-24 Creatinine 0.87 mg/dL N 0.67-1.17 BUN/Creatinine Ratio 19.5 N 8-20 Calcium 9.0 mg/dL N 8.6-10.3 Egfr Non- 85.3 N >60 Egfr 109.7 N >60 21 Laboratory test finding 07/07/2016 [facility] Ast (Sgot) 16 U/L N 13- 39 [phone] Lipid Profile 07/07/2016 [facility] Triglycerides 82 mg/dL N 22 (Trig/Chol/HDL) [phone] Cholesterol 212 mg/dL N 23 HDL Cholesterol 62.1 mg/dL N 24 LDL Cholesterol 134 mg/dL N 25 Laboratory test 07/07/2016 [facility] PSA Diagnostic < 0.008 ng/mL N 0-4.000 26 finding [phone] Urine Micro 07/03/2016 In House Ua WBC occ 27 Inhouse Ua RBC 0-2 Ua Casts - Ua Epi 10-12 Ua Other - Ua Glucose - Ua Bilirubin - Ua Ketones - Ua Specific Lyndon 1.010 Ua Blood Mod [place] Ua PH 6.0 Ua Protein - Ua Urobilinogen - Ua Nitrite - Ua Leukocytes - Basic Metabolic Panel 07/01/2015 [facility] Sodium 139 mmol/L N 133- 145 [phone] Potassium 3.7 mmol/L N 3.5-5.0 Chloride 100 mmol/L Low 101-111 Co2 Carbon Dioxide 31 mmol/L N 22-32 Anion Gap 8 mmol/L N 2-11 Glucose 92 mg/dL N 70-100 Blood Urea Nitrogen 15 mg/dL N 6-24 Creatinine 0.94 mg/dL N 0.67-1.17 BUN/Creatinine Ratio 16.0 N 8-20 Calcium 9.5 mg/dL N 8.6-10.3 Egfr Non- 78.2 N >60 Egfr 100.6 N >60 28 Laboratory test finding 07/01/2015 [facility] Ast (Sgot) 18 U/L N 13- 39 29 [phone] Lipid Profile 07/01/2015 [facility] Triglycerides 115 mg/dL N 30 (Trig/Chol/HDL) [phone] Cholesterol 215 mg/dL N 31 HDL Cholesterol 63.8 mg/dL N 32 LDL Cholesterol 128 mg/dL N 33 Laboratory test 07/01/2015 [facility] PSA Screening < 0.008 ng/mL N 0 -4.000 34 finding [phone] Urine Micro Inhouse 07/01/2015 In House Ua WBC 3-6 Ua RBC - Ua Casts - Ua Epi occ Ua Other - Ua Glucose - Ua Bilirubin - Ua Ketones - Ua Specific Lyndon 1.005 Ua Blood - Ua PH 6.0 Ua Protein - Ua Urobilinogen - Ua Nitrite - Ua Leukocytes - Basic Metabolic Panel 12/28/2014 [facility] Sodium 138 mmol/L N 133- 145 [phone] Potassium 3.7 mmol/L N 3.5-5.0 Chloride 100 mmol/L Low 101-111 Co2 Carbon Dioxide 30 mmol/L N 22-32 Anion Gap 8 mmol/L N 2-11 Glucose 80 mg/dL N 70-100 Blood Urea Nitrogen 16 mg/dL N 6-24 Creatinine 0.86 mg/dL N 0.67-1.17 BUN/Creatinine Ratio 18.6 N 8-20 Calcium 8.8 mg/dL N 8.6-10.3 Egfr Non- 86.9 N >60 Egfr 111.8 N >60 35 Urine Micro Inhouse 06/29/2014 In House Ua WBC - Ua RBC - Ua Casts - Ua Epi - Ua Other - Ua Glucose - Ua Bilirubin - Ua Ketones - Ua Specific Lyndon 1.005 Ua Blood - Ua PH 6.0 Ua Protein - Ua Urobilinogen - Ua Nitrite - Ua Leukocytes - Urine Micro Inhouse 12/22/2013 In House Ua WBC - Ua RBC - Ua Casts - Ua Epi - Ua Other - Ua Glucose - Ua Bilirubin - Ua Ketones - Ua Specific Lyndon 1.005 Ua Blood - Ua PH 5.0 Ua Protein - Ua Urobilinogen - Ua Nitrite - Ua Leukocytes - Laboratory test finding 06/27/2013 In House Occult Blood - Stool neg x3 Urine Micro Inhouse 06/27/2013 In House Ua WBC - Ua RBC - Ua Casts - Ua Epi - Ua Other - Ua Glucose - Ua Bilirubin - Ua Ketones - Ua Specific Lyndon 1.005 Ua Blood - Ua PH 7.0 Ua Protein - Ua Urobilinogen - Ua Nitrite - Ua Leukocytes - Urine Micro Inhouse 12/26/2012 In House Ua WBC - Ua RBC - Ua Casts - Ua Epi - Ua Other - Ua Glucose - Ua Bilirubin - Ua Ketones - Ua Specific Lyndon 1.005 Ua Blood - Ua PH 6.0 Ua Protein - Ua Urobilinogen - Ua Nitrite - Ua Leukocytes - Basic Metabolic Panel 12/17/2012 [facility] Sodium 138 mmol/L 133- 145 [phone] Potassium 3.2 mmol/L Low 3.5-5.0 Chloride 102 mmol/L 101-111 Co2 Carbon Dioxide 28.0 mmol/L 22-32 Anion Gap 8.0 mmol/L 2-11 Glucose 84 mg/dL 70-100 Blood Urea Nitrogen 22 mg/dL 6-24 Creatinine 0.90 mg/dL 0.50-1.40 BUN/Creatinine Ratio 24.4 High 8-20 Calcium 9.1 mg/dL 8.1-9.9 Egfr Non- 82.9 >60 Egfr 106.7 >60 36 Laboratory test finding 12/17/2012 [facility] Ast 18 U/L 12-42 [phone] Lipid Profile 12/17/2012 [facility] Triglycerides 91 mg/dL 40-200 (Trig/Chol/HDL) [phone] Cholesterol 221 mg/dL High Less than 200 HDL Cholesterol 58 mg/dL 40-60 37 Cholesterol/HDL Ratio 3.8 Average 1-4.44 LDL Cholesterol 144.8 High Less Than 100 38 Laboratory test finding 12/17/2012 [facility] PSA Diagnostic 0.0 ng/mL 0-4.0 39 [phone] Urine Micro Inhouse 05/31/2012 In House Ua WBC - Ua RBC - Ua Casts - Ua Epi - Ua Other - Ua Glucose - Ua Bilirubin - Ua Ketones - Ua Specific Lyndon 1.015 Ua Blood - Ua PH 6.0 Ua Protein - Ua Urobilinogen - Ua Nitrite - Ua Leukocytes - Lipid Profile 05/21/2012 [facility] Triglycerides 106 mg/dL 40-200 (Trig/Chol/HDL) [phone] Cholesterol 239 mg/dL High Less than 200 40 HDL Cholesterol 61 mg/dL High 40-60 41 Cholesterol/HDL Ratio 3.9 AVERAGE 1-4.44 LDL Cholesterol 156.8 mg/dL High Less Than 100 42 Laboratory test 05/21/2012 [facility] TSH (Thyroid 1.71 MIU/ML 0.34- 5.60 finding [phone] Stimulating Horm) CBC Auto Diff 05/21/2012 [facility] White Blood Count 6.6 10^3/uL 4.8-10.8 [phone] Red Blood Count 5.08 10^6/uL 4.0-5.4 Hemoglobin 16.6 g/dL 14.0-18.0 Hematocrit 48 % 42-52 Mean Corpuscular Volume 95 fL High 80-94 Mean Corpuscular Hemoglobin 33 pg High 27-31 Mean Corpuscular HGB Conc 35 g/dL 31-36 Red Cell Distribution Width 13 % 10.5-15 Platelet Count 262 10^3/uL 150-450 Mean Platelet Volume 8 um3 7.4-10.4 Abs Neutrophils 3.2 10^3/uL 1.5-7.7 Abs Lymphocytes 2.5 10^3/uL 1.0-4.8 Abs Monocytes 0.6 10^3/uL 0-0.8 Abs Eosinophils 0.1 10^3/uL 0-0.6 Abs Basophils 0.1 10^3/uL 0-0.2 Abs Nucleated RBC 0 10^3/uL Granulocyte % 49.2 % 38-83 Lymphocyte % 38.6 % 25-47 Monocyte % 9.5 % High 1-9 Eosinophil % 1.8 % 0-6 Basophil % 0.9 % 0-2 Nucleated Red Blood Cells % 0.1 Basic Metabolic Panel 05/21/2012 [facility] Sodium 141 mmol/L 133- 145 [phone] Potassium 3.5 mmol/L 3.5-5.0 Chloride 106 mmol/L 101-111 Co2 Carbon Dioxide 29.0 mmol/L 22-32 Anion Gap 6.0 mmol/L 2-11 Glucose 89 mg/dL 70-100 Blood Urea Nitrogen 19 mg/dL 6-24 Creatinine 1.10 mg/dL 0.50-1.40 BUN/Creatinine Ratio 17.3 8-20 Calcium 9.1 mg/dL 8.1-9.9 Egfr Non- 65.8 >60 Egfr 84.6 >60 43 Lipid Profile 05/25/2011 [facility] Triglyceride 88 mg/dL 40-200 (Trig/Chol/HDL) [phone] Cholesterol 225 mg/dL High Less Than 200 44 High Density Lipoprotein 62 mg/dL High 40-60 45 Cholesterol/HDL Ratio 3.63 AVERAGE 1-4.97 Low Density Lipoprotein 145 mg/dL High Less Than 100 46 Laboratory test finding 05/25/2011 [facility] Ast (Sgot) 23 U/L 12- 42 [phone] PSA Screening 0.00 NG/ML 0-4 47 Comp Metabolic Panel 05/25/2011 [facility] Sodium 141 mmol/L 135- 145 [phone] Potassium 3.9 mmol/L 3.5-5.0 Chloride 106 mmol/L 101-111 Co2 (Carbon Dioxide) 29.0 mmol/L 22-32 Anion Gap 6.0 mmol/L 2-11 48 Glucose 89 mg/dL 70-100 BUN 15 mg/dL 6-24 Creatinine 0.8 mg/dL 0.50-1.40 One Over Creatinine 1.25 BUN/Creatinine Ratio 18.8 8-20 Calcium 9.0 mg/dL 8.1-9.9 Total Protein 6.8 GM/DL 6.2-8.1 Albumin 3.9 GM/DL 3.2-5.2 Globulin 2.9 GM/DL 2-4 Albumin/Globulin Ratio 1.3 1-3 Bilirubin Total 1.2 mg/dL 0.4-1.5 49 Alkaline Phosphatase 70 U/L 39-117 Alt (SGPT) 18 U/L 17-63 eGFR Non- 95.3 > 60 eGFR 122.6 > 60 50 CBC Auto Diff 05/25/2011 [facility] White Blood Count 6.7 CUMM 4.8- 10.8 [phone] Red Cell Count 4.98 CUMM 4.6-6.2 Hemoglobin 16.0 g/dL 14.0-18.0 Hematocrit 46 % 42-52 Mean Corpuscular Volume 93 um3 80-94 Mean Corpuscular Hemoglob 32 pg High 27-31 Mean Corpuscular HGB Cone 35 g/dL 32-36 Redcell Distribution WDTH 13 % 10.5-15 Platelet Count 254 CUMM 150-450 Mean Platelet Volume 7.7 um3 7.4-10.4 Gran % 61.4 % 38-83 Lymph % 29.1 % 25-47 Mononuclear % 7.5 % 1-9 Eosinophil % 1.3 % 0-6 Basophil % 0.7 % 0-2 Abs Lymphs 1.9 1.0-4.8 Abs Mononuclear 0.5 0-0.8 Absolute Neutrophil Count 4.1 1.5-7.7 Abs Eosinophils 0.1 0-0.6 Abs Basophils 0 0-0.2 Urine Micro Inhouse 11/03/2010 In House Ua WBC 0-2 Ua RBC 0-1 Ua Casts - Ua Epi 1-2 Ua Other - Ua Glucose - Ua Bilirubin - Ua Ketones - Ua Specific Lyndon 1.005 Ua Blood - Ua PH 7.0 Ua Protein - Ua Urobilinogen - Ua Nitrite - Ua Leukocytes - Surgical 08/16/2010 [facility] Surgical <SEE 51 Pathology [phone] Pathology NOTE> Comp Metabolic 06/06/2010 [facility] Sodium 139 mmol/L 135-1 Panel [phone] Potassium 3.8 mmol/L 3.5-5.0 Chloride 103 mmol/L 101-111 Co2 (Carbon Dioxide) 30.0 mmol/L 22-32 Anion Gap 6.0 mmol/L 2-11 52 Glucose 87 mg/dL 70-100 53 BUN 14 mg/dL 6-24 Creatinine 0.90 mg/dL 0.50-1.40 One Over Creatinine 1.10 BUN/Creatinine Ratio 15.6 8-20 Calcium 9.0 mg/dL 8.1-9.9 Total Protein 6.6 GM/DL 6.2-8.1 Albumin 4.0 GM/DL 3.2-5.2 Globulin 2.6 GM/DL 2-4 Albumin/Globulin Ratio 1.5 1-3 Bilirubin Total 1.4 mg/dL 0.4-1.5 54 Alkaline Phosphatase 59 U/L 39-117 Alt (SGPT) 28 U/L 17-63 Ast (Sgot) 28 U/L 12-42 eGFR Non- 88.7 > 60 eGFR 107.3 > 60 55 CBC With Electronic 06/06/2010 [facility] White Blood 6.7 CUMM 4.8- 10.8 Diff [phone] Count Red Cell Count 4.95 CUMM 4.6-6.2 Hemoglobin 15.7 g/dL 14.0-18.0 Hematocrit 46 % 42-52 Mean Corpuscular Volume 93 um3 80-94 Mean Corpuscular Hemoglob 32 pg High 27-31 Mean Corpuscular HGB Cone 34 g/dL 32-36 Redcell Distribution WDTH 13 % 10.5-15 Platelet Count 277 CUMM 150-450 Mean Platelet Volume 6.8 um3 Low 7.4-10.4 Gran % 60.4 % 38-83 Lymph % 29.3 % 25-47 Mononuclear % 8.6 % 1-9 Eosinophil % 1.0 % 0-6 Basophil % 0.7 % 0-2 Abs Lymphs 2.0 1.0-4.8 Abs Mononuclear 0.6 0-0.8 Absolute Neutrophil Count 4.1 1.5-7.7 Abs Eosinophils 0.1 0-0.6 Abs Basophils 0 0-0.2 Urine Micro Inhouse 05/03/2010 In House Ua WBC - Ua RBC - Ua Casts - Ua Epi - Ua Other - Ua Glucose - Ua Bilirubin - Ua Ketones - Ua Specific Lyndon 1.005 Ua Blood - Ua PH 6.5 Ua Protein - Ua Urobilinogen - Ua Nitrite - Ua Leukocytes - Laboratory test 04/25/2010 [facility] Erythrocyte Sed Rate 13 MM/HR 0-40 finding [phone] TSH 1.84 MIU/ML 0.34-5.60 CBC With Electronic 04/25/2010 [facility] White Blood 6.5 CUMM 4.8- 10.8 Diff [phone] Count Red Cell Count 4.89 CUMM 4.6-6.2 Hemoglobin 15.6 g/dL 14.0-18.0 Hematocrit 45 % 42-52 Mean Corpuscular Volume 93 um3 80-94 Mean Corpuscular Hemoglob 32 pg High 27-31 Mean Corpuscular HGB Cone 34 g/dL 32-36 Redcell Distribution WDTH 14 % 10.5-15 Platelet Count 269 CUMM 150-450 Mean Platelet Volume 6.6 um3 Low 7.4-10.4 Gran % 65.5 % 38-83 Lymph % 24.2 % Low 25-47 Mononuclear % 8.0 % 1-9 Eosinophil % 1.6 % 0-6 Basophil % 0.7 % 0-2 Abs Lymphs 1.6 1.0-4.8 Abs Mononuclear 0.5 0-0.8 Absolute Neutrophil Count 4.2 1.5-7.7 Abs Eosinophils 0.1 0-0.6 Abs Basophils 0 0-0.2 Comp Metabolic Panel 04/25/2010 [facility] Sodium 139 mmol/L 135- 145 [phone] Potassium 3.7 mmol/L 3.5-5.0 Chloride 103 mmol/L 101-111 Co2 (Carbon Dioxide) 30.0 mmol/L 22-32 Anion Gap 6.0 mmol/L 2-11 56 Glucose 83 mg/dL 70-100 57 BUN 12 mg/dL 6-24 Creatinine 0.90 mg/dL 0.50-1.40 One Over Creatinine 1.10 BUN/Creatinine Ratio 13.3 8-20 Calcium 9.0 mg/dL 8.1-9.9 Total Protein 6.3 GM/DL 6.2-8.1 Albumin 3.8 GM/DL 3.2-5.2 Globulin 2.5 GM/DL 2-4 Albumin/Globulin Ratio 1.5 1-3 Bilirubin Total 1.2 mg/dL 0.4-1.5 58 Alkaline Phosphatase 58 U/L 39-117 Alt (SGPT) 25 U/L 17-63 Ast (Sgot) 28 U/L 12-42 eGFR Non- 88.9 > 60 eGFR 107.6 > 60 59 Laboratory test finding 04/25/2010 In House Occult Blood - Stool neg x3 Urine Micro Inhouse 09/09/2009 In House Ua WBC - Ua RBC - Ua Casts - Ua Epi tntc Ua Other mucous debri Ua Glucose - Ua Bilirubin - Ua Ketones - Ua Specific Lyndon 1.020 Ua Blood - Ua PH 5.0 Ua Protein - Ua Urobilinogen - Ua Nitrite - Ua Leukocytes - CBC With Electronic 04/22/2009 [facility] White Blood 6.7 CUMM 4.8- 10.8 Diff [phone] Count Red Cell Count 4.87 CUMM 4.6-6.2 Hemoglobin 15.3 g/dL 14.0-18.0 Hematocrit 46 % 42-52 Mean Corpuscular Volume 94 um3 80-94 Mean Corpuscular Hemoglob 32 pg High 27-31 Mean Corpuscular HGB Cone 34 g/dL 32-36 Redcell Distribution WDTH 13 % 10.5-15 Platelet Count 246 CUMM 150-450 Mean Platelet Volume 7.7 um3 7.4-10.4 Gran % 65.2 % 38-83 Lymph % 25.3 % 25-47 Mononuclear % 7.4 % 1-9 Eosinophil % 1.7 % 0-6 Basophil % 0.4 % 0-2 Abs Lymphs 1.7 1.0-4.8 Abs Mononuclear 0.5 0-0.8 Absolute Neutrophil Count 4.4 1.5-7.7 Abs Eosinophils 0.1 0-0.6 Abs Basophils 0 0-0.2 Basic Metabolic Panel 04/22/2009 [facility] Sodium 139 mmol/L 135- 145 [phone] Potassium 4.2 mmol/L 3.5-5.0 Chloride 109 mmol/L 101-111 Co2 (Carbon Dioxide) 25.0 mmol/L 22-32 Anion Gap 5.0 mmol/L 2-11 60 Glucose 90 mg/dL 70-100 61 BUN 24 mg/dL 6-24 Creatinine 0.84 mg/dL 0.50-1.40 One Over Creatinine 1.10 BUN/Creatinine Ratio 28.6 High 8-20 Calcium 8.7 mg/dL 8.1-9.9 62 eGFR Non- 96.6 > 60 eGFR 116.9 > 60 63 Protime W/Inr 04/22/2009 [facility] Inr 1.03 0.86-1.13 64 [phone] Protime 12.5 SEC 10.7-13.6 65 Laboratory test 04/22/2009 [facility] PTT (Aptt) 35.3 25.15-38.53 66 finding [phone] Lipid Profile 04/02/2009 [facility] Triglyceride 96 mg/dL 40-200 67 (Trig/Chol/HDL) [phone] Cholesterol 208 mg/dL High Less Than 200 68 High Density Lipoprotein 52 mg/dL 40-60 69 Cholesterol/HDL Ratio 4.00 AVERAGE 1-4.97 Low Density Lipoprotein 137 mg/dL High Less Than 100 70 Laboratory test finding 04/02/2009 [facility] Ast (Sgot) 19 U/L 12- 42 [phone] PSA Screening 0.0 NG/ML 0-4 71 Comp Metabolic Panel 04/02/2009 [facility] Sodium 138 mmol/L 135- 145 [phone] Potassium 4.0 mmol/L 3.5-5.0 Chloride 110 mmol/L 101-111 Co2 (Carbon Dioxide) 25.0 mmol/L 22-32 Anion Gap 3.0 mmol/L 2-11 72 Glucose 93 mg/dL 70-100 73 BUN 16 mg/dL 6-24 Creatinine 0.90 mg/dL 0.50-1.40 One Over Creatinine 1.10 BUN/Creatinine Ratio 17.8 8-20 Calcium 8.7 mg/dL 8.1-9.9 74 Total Protein 6.2 GM/DL 6.2-8.1 Albumin 3.6 GM/DL 3.2-5.2 Globulin 2.6 GM/DL 2-4 Albumin/Globulin Ratio 1.4 1-3 Bilirubin Total 0.7 mg/dL 0.4-1.5 75 Alkaline Phosphatase 68 U/L 39-117 Alt (SGPT) 16 U/L Low 17-63 eGFR Non- 89.2 > 60 eGFR 107.9 > 60 76 CBC With Electronic 04/02/2009 [facility] White Blood 5.9 CUMM 4.8- 10.8 Diff [phone] Count Red Cell Count 4.85 CUMM 4.6-6.2 Hemoglobin 15.1 g/dL 14.0-18.0 Hematocrit 46 % 42-52 Mean Corpuscular Volume 94 um3 80-94 Mean Corpuscular Hemoglob 31 pg 27-31 Mean Corpuscular HGB Cone 33 g/dL 32-36 Redcell Distribution WDTH 13 % 10.5-15 Platelet Count 237 CUMM 150-450 Mean Platelet Volume 7.7 um3 7.4-10.4 Gran % 59.4 % 38-83 Lymph % 29.7 % 25-47 Mononuclear % 7.3 % 1-9 Eosinophil % 2.8 % 0-6 Basophil % 0.8 % 0-2 Abs Lymphs 1.7 1.0-4.8 Abs Mononuclear 0.4 0-0.8 Absolute Neutrophil Count 3.5 1.5-7.7 Abs Eosinophils 0.2 0-0.6 Abs Basophils 0 0-0.2 Urine Micro Inhouse 03/19/2009 In House Urine Microscopic Inhouse - Ua Inhouse 03/19/2009 In House Ua Glucose - Ua Bilirubin - Ua Ketones - Ua Specific Lyndon 1.030 Ua Blood - Ua PH 5.0 Ua Protein - Ua Urobilinogen - Ua Nitrite - Ua Leukocytes - Laboratory test 03/19/2009 In House Occult Blood - neg x3 finding Stool Laboratory test 08/19/2008 [facility] PSA,Diagnostic 0.00 0-4 77 finding [phone] NG/ML Lipid Panel 09/01/2005 [facility] Cholesterol Total 242 High Less Than 200 Cholesterol/HDL Ratio 4.48 High Density Lipoprotein 54 LDL Low Density Lipoprotein 174 High Less Than 100 Triglycerides 68 CMP Panel 09/01/2005 [facility] Albumin 3.8 Alt - SGPT 18 Calcium 9.2 Carbon Dioxide 30.0 Chloride 105 Creatinine 0.9 Glucose Serum 93 Alkaline Phosphatase 71 Potassium 4.3 Protien Total 6.8 Sodium 141 Ast - Sgot 20 BUN - Urea Nitrogen 13 CMP Panel 12/01/2004 [facility]. Albumin 4.1 LABORATORY [phone] Alt - SGPT 19 Calcium 9.1 Chloride 109 Creatinine 0.9 Glucose Serum 91 Alkaline Phosphatase 68 Potassium 4.3 Protien Total 7.1 Sodium 142 Ast - Sgot 18 BUN - Urea Nitrogen 22 Lipid Panel 12/01/2004 [facility]. Cholesterol Total 224 High Less Than LABORATORY 200 [phone] Cholesterol/HDL Ratio 3.2 High Density Lipoprotein 70 LDL Low Density Lipoprotein 138 High Less Than 130 Triglycerides 81 CBC W/ Manual Diff 12/01/2004 [facility] White Blood Count 6.7 LABORATORY [phone] RBC Red Blood Count 5.07 Hemoglobin 15.7 Hematocrit 47.4 MCV (Corpuscular Volume) 93.4 MCH (Corpuscular Hemoglobin) 31.0 MCHC (Corpuscular Hemog Conc) 33.1 RDW 13.5 Lipid Profile 02/02/2004 [facility] Cholesterol/HDL 3.49 1-4.97 (Trig/Chol/HDL) [phone] Ratio AVERAGE Cholesterol 199 mg/dL Less Than 200 78 Triglyceride 64 mg/dL 40-200 High Density Lipoprotein 57 mg/dL 40-60 Low Density Lipoprotein 129 mg/dL High Less Than 100 79 Comp Metabolic Panel 02/02/2004 [facility] Anion Gap 6.0 mmol/L 2- 11 80 [phone] Albumin/Globulin Ratio 1.4 1-3 Albumin 3.8 GM/DL 3.2-5.2 Alkaline Phosphatase 65 U/L 39-117 Alt (SGPT) 19 U/L 17-63 Ast (Sgot) 22 U/L 12-42 BUN 16 mg/dL 6-24 Calcium 9.0 mg/dL 8.7-10.2 Chloride 107 mmol/L 101-111 Co2 (Carbon Dioxide) 28.0 mmol/L 22-32 Creatinine 1.0 mg/dL 0.5-1.4 Globulin 2.8 GM/DL 2-4 Glucose 92 mg/dL 70-105 Potassium 3.9 mmol/L 3.5-5.0 Sodium 141 mmol/L 135-145 Bilirubin Total 1.3 mg/dL 0.4-1.5 Total Protein 6.6 GM/DL 6.2-8.1 BUN/Creatinine Ratio 16.0 8-20 CBC With Electronic 02/02/2004 [facility] White Blood 8.7 CUMM 4.8- 10.8 Diff [phone] Count Abs Basophils 0.1 0-0.2 Abs Eosinophils 0.3 0-0.6 Abs Grans 5.8 1.5-7.7 Abs Lymphs 1.9 1.0-4.8 Abs Mononuclear 0.7 0-0.8 Basophil % 0.8 % 0-2 Hematocrit 44 % 42-52 Hemoglobin 14.7 g/dL 14.0-18.0 Eosinophil % 3.2 % 0-6 Gran % 66.5 % 38-83 Lymph % 21.5 % 20-45 Mean Corpuscular HGB Cone 33 g/dL 32-36 Mean Corpuscular Hemoglob 31 pg 27-31 Mean Corpuscular Volume 92 um3 80-94 Mean Platelet Volume 7.8 um3 7.4-10.4 Mononuclear % 8.0 % 1-9 Platelet Count 231 CUMM 150-450 Red Cell Count 4.77 CUMM 4.6-6.2 Redcell Distribution WDTH 13 % 10.5-15 1 Because ethnic data is not always readily available, this report includes an eGFR for both -Americans and non- Americans. The National Kidney Disease Education Program (NKDEP) does not endorse the use of the MDRD equation for patients that are not between the ages of 18 and 70, are , have extremes of body size, muscle mass, or nutritional status, or are non- or non-. According to the National Kidney Foundation, irrespective of diagnosis, the stage of the disease is based on the level of kidney function: Stage Description GFR(mL/min/1.73 m(2)) 1 Kidney damage with normal or decreased GFR 90 2 Kidney damage with mild decrease in GFR 60-89 3 Moderate decrease in GFR 30-59 4 Severe decrease in GFR 15-29 5 Kidney failure <15 (or dialysis) 2 FASTING 3 Because ethnic data is not always readily available, this report includes an eGFR for both -Americans and non- Americans. The National Kidney Disease Education Program (NKDEP) does not endorse the use of the MDRD equation for patients that are not between the ages of 18 and 70, are , have extremes of body size, muscle mass, or nutritional status, or are non- or non-. According to the National Kidney Foundation, irrespective of diagnosis, the stage of the disease is based on the level of kidney function: Stage Description GFR(mL/min/1.73 m(2)) 1 Kidney damage with normal or decreased GFR 90 2 Kidney damage with mild decrease in GFR 60-89 3 Moderate decrease in GFR 30-59 4 Severe decrease in GFR 15-29 5 Kidney failure <15 (or dialysis) 4 FASTING 5 Desirable: <150 Borderline High: 150-199 High: 200-499 Very High: >500 6 Desirable: <200 Borderline High: 200-239 High: >239 7 Low: <40 Desirable: 40-60 High: >60 8 Desirable: <100 Near Optimal: 100-129 Borderline High: 130-159 High: 160-189 Very High: >189 9 Serum levels of PSA measured using the [employer] DXI Hybritech immunoassay should not be interpreted as absolute evidence of the presence or absence of disease. The PSA value should be used in conjunction with other pertinent clinical diagnostic procedures. A PSA value in the range of 0.1 to 0.6 ng/ml is indeterminate if being used as an indicator of recurrent or residual disease. The values obtained with different assay methods or kits cannot be used interchangeably. 10 Serum levels of PSA measured using the [employer] [place] DXI Hybritech immunoassay should not be interpreted as absolute evidence of the presence or absence of disease. The PSA value should be used in conjunction with other pertinent clinical diagnostic procedures. A PSA value in the range of 0.1 to 0.6 ng/ml is indeterminate if being used as an indicator of recurrent or residual disease. The values obtained with different assay methods or kits cannot be used interchangeably. 11 No interferon-gamma response to M. tuberculosis antigens was detected. Infection with M. tuberculosis is unlikely. A single negative result does not exclude infection with M. tuberculosis. In patients at high risk for M.tuberculosis infection, a second test should be considered in accordance with the 2017 ATS/IDSA/CDC Clinical Practice Guidelines for Diagnosis of Tuberculosis in Adults and Children [Suzi MIDDLETON et. al. Clin. Infect. Dis. 2017;64(2):111-115]. The reference range for the 'TB1 Ag minus Nil Result' and 'TB2 Ag minus Nil Result' is an Interferon-gamma level <0.35 IU/mL. 12 Test Performed by: [address] [id number] 13 Normal Range 180 to 914 Indeterminate Range 145 to 180 Deficient Range <145 14 Because ethnic data is not always readily available, this report includes an eGFR for both -Americans and non- Americans. The National Kidney Disease Education Program (NKDEP) does not endorse the use of the MDRD equation for patients that are not between the ages of 18 and 70, are , have extremes of body size, muscle mass, or nutritional status, or are non- or non-. According to the National Kidney Foundation, irrespective of diagnosis, the stage of the disease is based on the level of kidney function: Stage Description GFR(mL/min/1.73 m(2)) 1 Kidney damage with normal or decreased GFR 90 2 Kidney damage with mild decrease in GFR 60-89 3 Moderate decrease in GFR 30-59 4 Severe decrease in GFR 15-29 5 Kidney failure <15 (or dialysis) 15 *Ascorbic acid is present which may interfere with detection of blood. 16 [place] Severe Sepsis and Septic Shock Management Bundle Measure requires all lactic acids initially measuring >2.0 mmol/L be repeated. 17 Because ethnic data is not always readily available, this report includes an eGFR for both -Americans and non- Americans. The National Kidney Disease Education Program (NKDEP) does not endorse the use of the MDRD equation for patients that are not between the ages of 18 and 70, are , have extremes of body size, muscle mass, or nutritional status, or are non- or non-. According to the National Kidney Foundation, irrespective of diagnosis, the stage of the disease is based on the level of kidney function: Stage Description GFR(mL/min/1.73 m(2)) 1 Kidney damage with normal or decreased GFR 90 2 Kidney damage with mild decrease in GFR 60-89 3 Moderate decrease in GFR 30-59 4 Severe decrease in GFR 15-29 5 Kidney failure <15 (or dialysis) 18 Because ethnic data is not always readily available, this report includes an eGFR for both -Americans and non- Americans. The National Kidney Disease Education Program (NKDEP) does not endorse the use of the MDRD equation for patients that are not between the ages of 18 and 70, are , have extremes of body size, muscle mass, or nutritional status, or are non- or non-. According to the National Kidney Foundation, irrespective of diagnosis, the stage of the disease is based on the level of kidney function: Stage Description GFR(mL/min/1.73 m(2)) 1 Kidney damage with normal or decreased GFR 90 2 Kidney damage with mild decrease in GFR 60-89 3 Moderate decrease in GFR 30-59 4 Severe decrease in GFR 15-29 5 Kidney failure <15 (or dialysis) 19 Because ethnic data is not always readily available, this report includes an eGFR for both -Americans and non- Americans. The National Kidney Disease Education Program (NKDEP) does not endorse the use of the MDRD equation for patients that are not between the ages of 18 and 70, are , have extremes of body size, muscle mass, or nutritional status, or are non- or non-. According to the National Kidney Foundation, irrespective of diagnosis, the stage of the disease is based on the level of kidney function: Stage Description GFR(mL/min/1.73 m(2)) 1 Kidney damage with normal or decreased GFR 90 2 Kidney damage with mild decrease in GFR 60-89 3 Moderate decrease in GFR 30-59 4 Severe decrease in GFR 15-29 5 Kidney failure <15 (or dialysis) 20 Serum levels of PSA measured using the [employer] DXI Hybritech immunoassay should not be interpreted as absolute evidence of the presence or absence of disease. The PSA value should be used in conjunction with other pertinent clinical diagnostic procedures. A PSA value in the range of 0.1 to 0.6 ng/ml is indeterminate if being used as an indicator of recurrent or residual disease. The values obtained with different assay methods or kits cannot be used interchangeably. 21 Because ethnic data is not always readily available, this report includes an eGFR for both -Americans and non- Americans. The National Kidney Disease Education Program (NKDEP) does not endorse the use of the MDRD equation for patients that are not between the ages of 18 and 70, are , have extremes of body size, muscle mass, or nutritional status, or are non- or non-. According to the National Kidney Foundation, irrespective of diagnosis, the stage of the disease is based on the level of kidney function: Stage Description GFR(mL/min/1.73 m(2)) 1 Kidney damage with normal or decreased GFR 90 2 Kidney damage with mild decrease in GFR 60-89 3 Moderate decrease in GFR 30-59 4 Severe decrease in GFR 15-29 5 Kidney failure <15 (or dialysis) 22 Desirable <150 Borderline high 150-199 High 200-499 Very High >500 23 Desirable <200 Borderline high 200-239 High >239 24 Low <40 Desirable: 40-60 High: >60 25 Desirable: <100 mg/dL Near Optimal: 100-129 mg/dL Borderline High: 130-159 mg/dL High: 160-189 mg/dL Very High: >189 mg/dL 26 Serum levels of PSA measured using the [employer] DXI Hybritech immunoassay should not be interpreted as absolute evidence of the presence or absence of disease. The PSA value should be used in conjunction with other pertinent clinical diagnostic procedures. A PSA value in the range of 0.1 to 0.6 ng/ml is indeterminate if being used as an indicator of recurrent or residual disease. The values obtained with different assay methods or kits cannot be used interchangeably. 27 void, clear, yellow 28 Because ethnic data is not always readily available, this report includes an eGFR for both -Americans and non- Americans. The National Kidney Disease Education Program (NKDEP) does not endorse the use of the MDRD equation for patients that are not between the ages of 18 and 70, are , have extremes of body size, muscle mass, or nutritional status, or are non- or non-. According to the National Kidney Foundation, irrespective of diagnosis, the stage of the disease is based on the level of kidney function: Stage Description GFR(mL/min/1.73 m(2)) 1 Kidney damage with normal or decreased GFR 90 2 Kidney damage with mild decrease in GFR 60-89 3 Moderate decrease in GFR 30-59 4 Severe decrease in GFR 15-29 5 Kidney failure <15 (or dialysis) 29 eggs and toast and milk 30 Desirable <150 Borderline high 150-199 High 200-499 Very High >500 31 Desirable <200 Borderline high 200-239 High >239 32 Low <40 Desirable: 40-60 High: >60 33 Desirable: <100 mg/dL Near Optimal: 100-129 mg/dL Borderline High: 130-159 mg/dL High: 160-189 mg/dL Very High: >189 mg/dL 34 Serum levels of PSA measured using the [employer] DXI Hybritech immunoassay should not be interpreted as absolute evidence of the presence or absence of disease. The PSA value should be used in conjunction with other pertinent clinical diagnostic procedures. A PSA value in the range of 0.1 to 0.6 ng/ml is indeterminate if being used as an indicator of recurrent or residual disease. The values obtained with different assay methods or kits cannot be used interchangeably. 35 Because ethnic data is not always readily available, this report includes an eGFR for both -Americans and non- Americans. The National Kidney Disease Education Program (NKDEP) does not endorse the use of the MDRD equation for patients that are not between the ages of 18 and 70, are , have extremes of body size, muscle mass, or nutritional status, or are non- or non-. According to the National Kidney Foundation, irrespective of diagnosis, the stage of the disease is based on the level of kidney function: Stage Description GFR(mL/min/1.73 m(2)) 1 Kidney damage with normal or decreased GFR 90 2 Kidney damage with mild decrease in GFR 60-89 3 Moderate decrease in GFR 30-59 4 Severe decrease in GFR 15-29 5 Kidney failure <15 (or dialysis) 36 Because ethnic data is not always readily available, this report includes an eGFR for both -Americans and non- Americans. The National Kidney Disease Education Program (NKDEP) does not endorse the use of the MDRD equation for patients that are not between the ages of 18 and 70, are , have extremes of body size, muscle mass, or nutritional status, or are non- or non-. According to the National Kidney Foundation, irrespective of diagnosis, the stage of the disease is based on the level of kidney function: Stage Description GFR(mL/min/1.73 m(2)) 1 Kidney damage with normal or decreased GFR 90 2 Kidney damage with mild decrease in GFR 60-89 3 Moderate decrease in GFR 30-59 4 Severe decrease in GFR 15-29 5 Kidney failure <15 (or dialysis) 37 HDL Interpretation: Undesirable: High Risk: Less than 40 mg/dL Desirable: Low Risk: Greater than 60 mg/dL 38 LDL Interpretation: Low Risk Optimal Level: LDL Less than 100 mg/dL Near or Above Optimal: LDL 100-129 mg/dL Borderline High Risk: LDL 130-159 mg/dL High Risk: LDL 160-189 mg/dL Very High Risk: LDL Greater than 189 mg/dL 39 Serum levels of PSA measured using the [employer] DXI Hybritech immunoassay should not be interpreted as absolute evidence of the presence or absence of disease. The PSA value should be used in conjunction with other pertinent clinical diagnostic procedures. A PSA value in the range of 0.1 to 0.6 ng/ml is indeterminate if being used as an indicator of recurrent or residual disease. The values obtained with different assay methods or kits cannot be used interchangeably. 40 Desirable: Less than 200 MG/DL Borderline-High Risk: 200-239 MG/DL High-Risk: 240 MG/DL and over 41 HDL Interpretation: Undesirable: High Risk: Less than 40 MG/DL Desirable: Low Risk: Greater than 60 MG/DL 42 LDL Interpretation: Low Risk Optimal Level: LDL Less than 100 MG/DL Near or Above Optimal: LDL 100-129 MG/DL Borderline High Risk: LDL 130-159 MG/DL High Risk: LDL 160-189 MG/DL Very High Risk: LDL Greater than 189 MG/DL 43 Because ethnic data is not always readily available, this report includes an eGFR for both -Americans and non- Americans. The National Kidney Disease Education Program (NKDEP) does not endorse the use of the MDRD equation for patients that are not between the ages of 18 and 70, are , have extremes of body size, muscle mass, or nutritional status, or are non- or non-. According to the National Kidney Foundation, irrespective of diagnosis, the stage of the disease is based on the level of kidney function: Stage Description GFR(mL/min/1.73 m(2)) 1 Kidney damage with normal or decreased GFR 90 2 Kidney damage with mild decrease in GFR 60-89 3 Moderate decrease in GFR 30-59 4 Severe decrease in GFR 15-29 5 Kidney failure <15 (or dialysis) 44 CHOLESTEROL INTERPRETATION: Desirable: Less than 200 MG/DL Borderline-High Risk: 200-239 MG/DL High-Risk: 240 MG/DL and over 45 HDL INTERPRETATION: Undesirable: High Risk: Less than 40 MG/DL Desirable: Low Risk: Greater than 60 MG/DL 46 LDL INTERPRETATION: Low Risk Optimal Level: LDL Less than 100 MG/DL Near or Above Optimal: LDL 100-129 MG/DL Borderline High Risk: LDL 130-159 MG/DL High Risk: LDL 160-189 MG/DL Very High Risk: LDL Greater than 189 MG/DL 47 * SERUM LEVELS OF PSA MEASURED USING THE YOAV ScoreBig ACCESS HYBRITECH IMMUNOASSAY SHOULD NOT BE INTERPRETED ABSOLUTE EVIDENCE OF THE PRESENCE OR ABSENCE OF DISEASE. THE PSA VALUE SHOULD BE USED IN CONJUNCTION WITH OTHER PERTINENT CLINICAL DIAGNOSTIC PROCEDURES. A PSA value in the range of 0.1 to 0.6 ng/ml is indeterminate if being used as an indicator of recurrent or residual disease. . 48 Anion gap measurement may be of limited value in the presence of any alkalosis, especially in a combined acid base disorder. . 49 A metabolite of Naproxen, O-desmethylnaproxen, has been shown to interfere with the Jendrassik-[place] method for measuring total bilirubin. Samples from patients who have taken Naproxen have shown spurious elevation in total bilirubin levels. 50 Because ethnic data is not always readily available, this report includes an eGFR for both -Americans and non- Americans. The National Kidney Disease Education Program (NKDEP) does not endorse the use of the MDRD equation for patients that are not between the ages of 18 and 70, are , have extremes of body size, muscle mass, or nutritional status, or are non- or non-. According to the National Kidney Foundation, irrespective of diagnosis, the stage of the disease is based on the level of kidney function: Stage Description GFR(mL/min/1.73 m(2)) 1 Kidney damage with normal or decreased GFR 90 2 Kidney damage with mild decrease in GFR 60-89 3 Moderate decrease in GFR 30-59 4 Severe decrease in GFR 15-29 5 Kidney failure <15 (or dialysis) 51 ---- RUN DATE: 08/18/10 [facility] NMI LIVE PAGE 1 RUN TIME: 1525 Specimen Inquiry RUN USER: INTERFACE -- Name: YUN SADLER#: [id number] Status: REG REF Re08/16/10 Age/Sex: 70/M Unit#: [id number] Location: [facility] : 40 -- Specimen: [id number] VARINDER Spec Date: 08/16/[address]: Griffin padron MD Spec Type: SURGICAL P Received: 08/17/10 Copies to: Devendra rivera MD SPECIMEN RANDOM COLON BIOPSIES HISTORY POST-OP DIAGNOSIS: Screening colonoscopy to cecum. Melanosis - biopsied. CLINICAL INFORMATION: Family history of colon carcinoma. Screening GROSS DESCRIPTION The specimen is received in formalin labelled Yun Sadler, Random Colon Biopsies, and consists of two field-brown, soft tissue fragments measuring 0.3 x 0.2 x 0.1 cm. Submitted entirely, one cassette. DIAGNOSIS Colon, random biopsies: A. Large intestinal mucosa with melanosis coli. B. Patchy areas of thickened basement membrane somewhat suggestive of collagenous colitis (see comment). COMMENT The biopsy demonstrates areas of mild to moderate thickening and redundancy of the basement membrane which is seen to skip between crypts. This is suggestive of mild collagenous colitis. There is no significant increase in superficial lamina propria lymphoplasmacytic infiltrate and extensive melanosis coli is seen the lamina propria. Correlation with endoscopic findings is suggested. Signed Electronically by: REYES ESTRADA MD 08/18/10 1523 -- -- DEPARTMENT OF PATHOLOGY, [address] [place] [address] [facility] Permit #[id number] Reyes Estrada M.D. Director Cecily Concepcion M.D. Drop Hammer Mechanic Dir madi -- 52 Anion gap measurement may be of limited value in the presence of any alkalosis, especially in a combined acid base disorder. . 53 Note change in reference range as of 03/05/08. The change was based on recommendations from the [place] [employer]. 54 A metabolite of Naproxen, O-desmethylnaproxen, has been shown to interfere with the Jendrassik-Calvin method for measuring total bilirubin. Samples from patients who have taken Naproxen have shown spurious elevation in total bilirubin levels. 55 Because ethnic data is not always readily available, this report includes an eGFR for both -Americans and non- Americans. The National Kidney Disease Education Program (NKDEP) does not endorse the use of the MDRD equation for patients that are not between the ages of 18 and 70, are , have extremes of body size, muscle mass, or nutritional status, or are non- or non-. According to the National Kidney Foundation, irrespective of diagnosis, the stage of the disease is based on the level of kidney function: Stage Description GFR(mL/min/1.73 m(2)) 1 Kidney damage with normal or decreased GFR 90 2 Kidney damage with mild decrease in GFR 60-89 3 Moderate decrease in GFR 30-59 4 Severe decrease in GFR 15-29 5 Kidney failure <15 (or dialysis) 56 Anion gap measurement may be of limited value in the presence of any alkalosis, especially in a combined acid base disorder. . 57 Note change in reference range as of 03/05/08. The change was based on recommendations from the [place] [employer]. 58 A metabolite of Naproxen, O-desmethylnaproxen, has been shown to interfere with the Jendrassik-Calvin method for measuring total bilirubin. Samples from patients who have taken Naproxen have shown spurious elevation in total bilirubin levels. 59 Because ethnic data is not always readily available, this report includes an eGFR for both -Americans and non- Americans. The National Kidney Disease Education Program (NKDEP) does not endorse the use of the MDRD equation for patients that are not between the ages of 18 and 70, are , have extremes of body size, muscle mass, or nutritional status, or are non- or non-. According to the National Kidney Foundation, irrespective of diagnosis, the stage of the disease is based on the level of kidney function: Stage Description GFR(mL/min/1.73 m(2)) 1 Kidney damage with normal or decreased GFR 90 2 Kidney damage with mild decrease in GFR 60-89 3 Moderate decrease in GFR 30-59 4 Severe decrease in GFR 15-29 5 Kidney failure <15 (or dialysis) 60 Anion gap measurement may be of limited value in the presence of any alkalosis, especially in a combined acid base disorder. . 61 Note change in reference range as of 03/05/08. The change was based on recommendations from the [place] [employer]. 62 Please note change in reference range effective 07 . 63 Because ethnic data is not always readily available, this report includes an eGFR for both -Americans and non- Americans. The National Kidney Disease Education Program (NKDEP) does not endorse the use of the MDRD equation for patients that are not between the ages of 18 and 70, are , have extremes of body size, muscle mass, or nutritional status, or are non- or non-. According to the National Kidney Foundation, irrespective of diagnosis, the stage of the disease is based on the level of kidney function: Stage Description GFR(mL/min/1.73 m(2)) 1 Kidney damage with normal or decreased GFR 90 2 Kidney damage with mild decrease in GFR 60-89 3 Moderate decrease in GFR 30-59 4 Severe decrease in GFR 15-29 5 Kidney failure <15 (or dialysis) 64 Recommended INR for Patients on Oral Anticoagulants Prophylaxis 2.0 - 3.0 Treatment of thrombosis 2.0 - 3.0 Prevention of embolism 2.0 - 3.0 Prevention of embolism from prosthetic heart valves 2.5 - 3.5 65 ATTENTION EFFECTIVE 11/25/08, THE IMPLEMENTATION OF NEW COAGULATION ANLAYZERS HAS CAUSED A SIGNIFICANT DIFFERENCE FOR PROTIME RESULTS IN SECONDS. THEREFORE, DIAGNOSIS,TREATMENT,AND THERAPY MUST BE BASED ON THE INR VALUE ONLY. 66 PLEASE NOTE NEW REFERENCE RANGE EFFECTIVE 09. 67 FASTING 68 CHOLESTEROL INTERPRETATION: Desirable: Less than 200 MG/DL Borderline-High Risk: 200-239 MG/DL High-Risk: 240 MG/DL and over 69 HDL INTERPRETATION: Undesirable: High Risk: Less than 40 MG/DL Desirable: Low Risk: Greater than 60 MG/DL 70 LDL INTERPRETATION: Low Risk Optimal Level: LDL Less than 100 MG/DL Near or Above Optimal: LDL 100-129 MG/DL Borderline High Risk: LDL 130-159 MG/DL High Risk: LDL 160-189 MG/DL Very High Risk: LDL Greater than 189 MG/DL 71 * SERUM LEVELS OF PSA MEASURED USING THE YOAV ScoreBig ACCESS HYBRITECH IMMUNOASSAY SHOULD NOT BE INTERPRETED ABSOLUTE EVIDENCE OF THE PRESENCE OR ABSENCE OF DISEASE. THE PSA VALUE SHOULD BE USED IN CONJUNCTION WITH OTHER PERTINENT CLINICAL DIAGNOSTIC PROCEDURES. A PSA value in the range of 0.1 to 0.6 ng/ml is indeterminate if being used as an indicator of recurrent or residual disease. . 72 Anion gap measurement may be of limited value in the presence of any alkalosis, especially in a combined acid base disorder. . 73 Note change in reference range as of 03/05/08. The change was based on recommendations from the [place] [employer]. 74 Please note change in reference range effective 07 . 75 A metabolite of Naproxen, O-desmethylnaproxen, has been shown to interfere with the Jendrassik-Calvin method for measuring total bilirubin. Samples from patients who have taken Naproxen have shown spurious elevation in total bilirubin levels. 76 Because ethnic data is not always readily available, this report includes an eGFR for both -Americans and non- Americans. The National Kidney Disease Education Program (NKDEP) does not endorse the use of the MDRD equation for patients that are not between the ages of 18 and 70, are , have extremes of body size, muscle mass, or nutritional status, or are non- or non-. According to the National Kidney Foundation, irrespective of diagnosis, the stage of the disease is based on the level of kidney function: Stage Description GFR(mL/min/1.73 m(2)) 1 Kidney damage with normal or decreased GFR 90 2 Kidney damage with mild decrease in GFR 60-89 3 Moderate decrease in GFR 30-59 4 Severe decrease in GFR 15-29 5 Kidney failure <15 (or dialysis) 77 CONSISTENT WITH PREVIOUS RESULTS * SERUM LEVELS OF PSA MEASURED USING THE [employer] ACCESS HYBRITECH IMMUNOASSAY SHOULD NOT BE INTERPRETED ABSOLUTE EVIDENCE OF THE PRESENCE OR ABSENCE OF DISEASE. THE PSA VALUE SHOULD BE USED IN CONJUNCTION WITH OTHER PERTINENT CLINICAL DIAGNOSTIC PROCEDURES. A PSA value in the range of 0.1 to 0.6 ng/ml is indeterminate if being used as an indicator of recurrent or residual disease. . 78 Classification: Desirable . 79 CALCULATED LDL APPROXIMATES THE VALUE OF A DIRECT LDL MEASUREMENT. Classification: Near or above optimal . 80 Anion gap measurement may be of limited value in the presence of any alkalosis, especially in a combined acid base disorder. . Procedures Date Code Description Status 07/05/2017 72421 Electrocardiogram Complete Completed 07/03/2016 63340 Electrocardiogram Complete Completed 07/01/2015 20065 Electrocardiogram Complete Completed 06/29/2014 66347 Electrocardiogram Complete Completed 06/27/2013 98226 Electrocardiogram Complete Completed 05/31/2012 91604 Electrocardiogram Complete Completed 08/16/2010 89794034 Colonoscopy Completed 04/25/2010 46362 Anoscopy Diagnostic Completed 09/09/2009 77030 Electrocardiogram Complete Completed 09/09/2009 67215 Electrocardiogram Complete Completed 04/22/2009 03325 Electrocardiogram Complete Completed Encounters Type Date Location Provider Dx Diagnosis Office Visit 01/10/2019 Main Office Albino Hawthorne, I10 Essential (primary ) 11:30a D.O. 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 shoulder S40.011D Contusion of right shoulder, subsequent encounter W11.xxxD Fall on and from ladder, subsequent encounter I10 Essential (primary) hypertension I71.2 Thoracic aortic aneurysm, without rupture Office Visit 04/12/2018 1:45p Main Office Albino Hawthorne, I71.2 Thoracic aortic D.O. aneurysm, without rupture W11.xxxA Fall on and from ladder, initial encounter I10 Essential (primary) hypertension E78.00 Pure hypercholesterolemia, unspecified S40.011A Contusion of right shoulder, initial encounter S20.212A Contusion of left front wall of thorax, initial encounter Office Visit 03/08/2018 2:00p Main Office Albino Hawthorne, W01.10xA Fall same lev D.O. from slip/trip w strike agnst unsp obj, init S23.41xA Sprain of ribs, initial encounter Z23 Encounter for immunization Office Visit 02/07/2018 2:30p Main Office Albino Hawthorne, I10 Essential ( primary) D.O. hypertension Z85.46 Personal history of malignant neoplasm of prostate M15.0 Primary generalized (osteo)arthritis E78.00 Pure hypercholesterolemia, unspecified M25.561 Pain in right knee M54.2 Cervicalgia Office Visit 12/18/2016 1:45p Main Office Devendra Fong Essential ( primary) Hussein Sharma hypertension Z85.46 Personal history of malignant neoplasm of prostate D23.9 Other benign neoplasm of skin, unspecified Office Visit 07/03/2016 10:45a Main Office Devendra Fong Essential ( primary) Hussein Sharma hypertension Z71.89 Other specified counseling R35.0 Frequency of micturition Z00.01 Encounter for general adult medical exam w abnormal findings Z85.46 Personal history of malignant neoplasm of prostate Z13.220 Encounter for screening for lipoid disorders Z23 Encounter for immunization Z41.8 Encntr for oth proc for purpose oth [facility] Office Visit 12/30/2015 11:15a Main Office Devendra Calderon K59.01 Slow transit Hussein Sharma constipation M15.0 Primary generalized (osteo)arthritis I10 Essential (primary) hypertension Office Visit 07/01/2015 10:45a Main Office Devendra Sharma M.D. R35.1 Nocturia Z85.46 Personal history of malignant neoplasm of prostate I10 Essential (primary) hypertension Z71.89 Other specified counseling Z00.01 Encounter for general adult medical exam w abnormal findings Z13.220 Encounter for screening for lipoid disorders Office Visit 12/28/2014 12:55p Main Office Devendra Wei.1 Hypertension Angelo Sharma M.D. V65.49 Counseling Other Spec V07.2 Prophylactic Immunotherapy V03.82 Streptococcus Pneumoniae Vaccination Spec Other Office Visit 12/22/2013 11:15a Main Office Devendra Wei.1 Ghazal Sharma M.D. 564.01 Constipation Slow Transit 719.44 Pain Joint Hand Office Visit 06/27/2013 10:45a Main Office Devendra Wei.1 Ghazal Sharma M.D. 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 272.0 Hypercholesterolemia Pure V10.46 History Personal Malignant Neoplasm Prostate Office Visit 12/07/2012 11:15a Main Office Devendra Calderon 782.1 Rash & Other Hussein Sharma Nonspec Skin Eruption E906.3 Bite Other Animal Except Arthropod Office Visit 05/31/2012 10:45a Main Office Devendra Wei.1 Hypertension Angelo Sharma M.D. 272.0 Hypercholesterolemia Pure V10.46 History Personal Malignant Neoplasm Prostate V70.0 Examination General Medical Routine AT Health Care Facility V76.44 Screening For Malig Nikolas Prostate Office Visit 12/21/2011 11:40a Main Office Devendra Wei.1 Hypertension Angelo Sharma M.D. 719.43 Pain Joint Forearm Office Visit 05/11/2011 Main Office Devendra Calderon 272.0 Hypercholesterolemia Pure 1:30p Hussein Sharma V10.46 History Personal Malignant Neoplasm Prostate 564.01 Constipation Slow Transit V76.51 Special Screening For Malignant Neoplasms Colon V70.0 Examination General Medical Routine AT Health Care Facility Office Visit 11/03/2010 11:40a Main Office Devendra Wei.1 Hypertension Angelo Sharma M.D. 788.41 Urinary Frequency Office Visit 04/25/2010 10:45a Main Office Devendra Calderon 564.00 Constipation Hussein Sharma Unspecified V70.0 Examination General Medical Routine AT Health Care Facility 401.1 Hypertension Benign 365.9 Glaucoma Unspec V76.51 Special Screening For Malignant Neoplasms Colon 787.99 Digestive Symptoms Other Office Visit 12/27/2009 2:20p Main Office Qian Fuller 928.10 Crushing Injury P.A. Lower Leg 729.5 Pain In Limb 682.6 Cellulitis & Abscess Leg Except Foot E919.0 Accident Caused By Agricultural Machinery Office Visit 12/16/2009 1:40p Main Office Qian Fuller 928.10 Crushing Injury P.A. Lower Leg E919.0 Accident Caused By Agricultural Machinery Office Visit 09/14/2009 3:45p Main Office Devendra Calderon 401.1 Hypertension Benign Hussein Sharma 361.9 Retinal Detachment Other Unspec V72.83 Examination Preoperative Other Spec Office Visit 09/09/2009 11:40a Main Office Devendra Calderon 401.1 Hypertension Benign Hussein Sharma 361.9 Retinal Detachment Other Unspec V10.46 History Personal Malignant Neoplasm Prostate V72.83 Examination Preoperative Other Spec 780.4 Dizziness & Giddiness Office Visit 07/22/2009 1:05p Main Office Devendra Calderon 796.2 Blood Pressure Hussein Sharma Reading Elevated W/O Hypertension Office Visit 05/11/2009 10:45a Main Office Geneva Gonsalves MD 379.91 Pain In Or Around Eye 401.9 Hypertension Unspec Office Visit 04/22/2009 Main Office Devendra Calderon 272.0 Hypercholesterolemia Pure 9:15a Hussein Sharma V10.46 History Personal Malignant Neoplasm Prostate V72.83 Examination Preoperative Other Spec V03.82 Streptococcus Pneumoniae Vaccination Spec Other Office Visit 03/19/2009 Main Office Devendra Calderon 272.0 Hypercholesterolemia Pure 2:30p Hussein Sharma V10.46 History Personal Malignant Neoplasm Prostate V76.51 Special Screening For Malignant Neoplasms Colon V70.0 Examination General Medical Routine AT Health Care Facility V06.5 Tetanus Diphtheria (DT) V07.2 Prophylactic Immunotherapy Office Visit 08/16/2005 1:30p Main Office [place] 401.1 Hypertension Benign 272.0 Hypercholesterolemia Pure Plan of Treatment Future Appointment(s):07/11/2019 11:00 am - Albino Hawthorne D.O. at Main Nydjml2001/10/2019 - Albino Hawthorne D.O.I10 Essential (primary) hypertensionFollow up:6 months blood pressure cgflgJ45.3 Other fuffbhiL04.83 Other gbrpyjmZ43.46 Personal history of malignant neoplasm of ogerdfcrI92.25 Adjustment disorder with mixed disturbance of emotions and cZ63.79 Other stressful life events affecting family and ryropgecgF77.79 Encounter for issue of other medical nlxcgwevicnH06.89 Other specified counseling
--- OUTSIDE RECORDS SUMMARY | 2019-01-28 13:20 | XMS REPORT | Continuity of Care Document ---
:1940 External Reference #:[id number] Author Name Albino Hawthorne D.O. Address [address] [place] [address] Care Team Providers Name Role Phone HCP/LW on file Primary Care Physician Unavailable Payers Date Identification Numbers Payment Provider Subscriber Effective: 2005 Policy Number: [id number] [employer] Yun Sadler PayID: [id number] [address] [place] [id number] Problems Active Problems Provider Date History of [...] [place] First Daughter 04-06-71 Second Daughter Fide Riso Second Daughter 04-07-74 Third Daughter Deedee Sadler [...] CPT Code Status Date Vaccine Lot # [id number] Given 03/08/2018 Influenza Vaccine Split Virus Preservative Free Im [id number] Use 45810 Given 07/05/2017 Influenza Virus Vaccine, Quadrivalent, Split, [id number] Preservative Free 92151 Given 07/03/2016 Influenza Virus Vaccine, Quadrivalent, Split, [id number] Preservative Free 68723 Given 12/28/2014 Prevnar 13 [id number] 69266 Given 06/29/2014 Adacel or Boostrix, TDaP [id number] 92874 Given 06/29/2014 Influenza Virus Vaccine, Quadrivalent, Split, [id number] Preservative Free 71451 Given 04/22/2009 Pneumococcal Immunization [id number] 24624 Given 03/19/2009 Td Immunization [id number] U-Flu Refused 07/01/2015 Influenza,Unspecified [id number] Refused 06/29/2014 Flu, Split Virus 3Yrs [id number] Refused 06/27/2013 Flu, Split Virus 3Yrs 78747 Refused 05/31/2012 Flu, Split Virus 3Yrs 52068 Refused 05/11/2011 Flu, Split Virus 3Yrs 67681 Refused 04/25/2010 Flu, Split Virus 3Yrs 23737 Refused 04/22/2009 Flu, Split Virus 3Yrs Vital [...] H/L Range Note Basic Metabolic Panel 12/27/2018 [facility] Sodium 141 mmol/L N 135- 145 [phone] Potassium 4.5 mmol/L N 3.5-5.0 Chloride 108 mmol/L N 101-111 Co2 Carbon Dioxide 26 mmol/L N 22-32 Anion Gap 7 mmol/L N 2-11 Glucose 102 mg/dL High 70-100 Blood Urea Nitrogen 24 mg/dL N 6-24 Creatinine 0.91 mg/dL N 0.67-1.17 BUN/Creatinine Ratio 26.4 High 8-20 Calcium 9.2 mg/dL N 8.6-10.3 Egfr Non- 80.6 >60 Egfr 97.5 >60 1 Basic Metabolic Panel 07/18/2018 [facility] Sodium 141 mmol/L N 135- 145 2 [phone] Potassium 4.5 mmol/L N 3.5-5.0 Chloride 107 mmol/L N 101-111 Co2 Carbon Dioxide 27 mmol/L N 22-32 Anion Gap 7 mmol/L N 2-11 Glucose 92 mg/dL N 70-100 Blood Urea Nitrogen 20 mg/dL N 6-24 Creatinine 0.99 mg/dL N 0.67-1.17 BUN/Creatinine Ratio 20.2 High 8-20 Calcium 9.5 mg/dL N 8.6-10.3 Egfr Non- 73.1 >60 Egfr 88.5 >60 3 Laboratory test finding 07/18/2018 [facility] Ast (Sgot) 14 U/L N 13- 39 4 [phone] Lipid Profile 07/18/2018 [facility] Triglycerides 80 mg/dL 5 (Trig/Chol/HDL) [phone] Cholesterol 208 mg/dL 6 HDL Cholesterol 65.0 mg/dL 7 LDL Cholesterol 127 mg/dL 8 Laboratory test 07/18/2018 [facility] PSA Screening < 0.008 ng/mL N 0 -4.000 9 finding [phone] Laboratory test 07/17/2018 [facility] PSA Diagnostic < 0.008 ng/mL N 0-4.000 10 finding [phone] TSH (Thyroid Stim Horm) 1.56 mcIU/mL N 0.34-5.60 Quantiferon Gold 07/17/2018 [facility] QuantiFERON-Tb Gold Negative Negative 11 TB [phone] Plus TB1 Ag minus Nil Result 0 IU/mL TB2 Ag minus Nil Result 0 IU/mL TB Mitogen minus Nil Result 6.48 IU/mL TB Nil Result 0.01 IU/mL 12 Laboratory test 07/17/2018 [facility] Vitamin B12 457 pg/mL N 180- 914 13 finding [phone] CBC Auto Diff 07/17/2018 [facility] White Blood 6.4 10^3/uL N 3.5- 10.8 [phone] Count Red Blood Count 5.39 10^6/uL N [...] Cells % 0.1 Comp Metabolic Panel 07/17/2018 [facility] Sodium 142 mmol/L N 135- 145 [phone] Potassium 4.3 mmol/L N 3.5-5.0 Chloride 106 [...] Egfr 80.0 >60 14 Urinalysis Profile 04/11/2018 [facility] Urine Color Yellow [phone] Urine Appearance Clear Urine Specific [place] 1.026 N 1.010-1.030 Urine pH 5.0 N 5-9 Urine Urobilinogen Negative Negative Urine Ketones 1+ Abnormal Negative Urine Protein Negative Negative Urine Leukocytes Negative Negative Urine Blood Negative Negative * * Abnormal Negative 15 Urine Nitrite Negative Negative Urine Bilirubin Negative Negative Urine Glucose Negative Negative Laboratory test 04/11/2018 [facility] Lactic Acid 1.2 mmol/L N 0.5- 2.0 16 finding [phone] Inr/Protime 04/11/2018 [facility] Inr 0.96 N 0.77-1.02 [phone] Laboratory test 04/11/2018 [facility] Amylase 47 U/L N 29-103 finding [phone] Lipase < 10 U/L Low 11.0-82.0 Creatine Kinase(CK) 409 U/L High 10-223 Comp Metabolic Panel 04/11/2018 [facility] Sodium 140 mmol/L N 135- 145 [phone] Potassium 4.0 mmol/L N 3.5-5.0 Chloride 107 [...] 101.6 >60 17 CBC Auto Diff 04/11/2018 [facility] White Blood 14.3 10^3/uL High 3.5 -10.8 [phone] Count Red Blood Count 4.99 10^6/uL N [...] Cells % 0.1 Type & Screen 04/11/2018 [facility] Patient Blood Type O Positive [phone] Antibody Screen NEGATIVE Basic Metabolic Panel 02/07/2018 [facility] Sodium 139 mmol/L N 135- 145 [phone] Potassium 4.4 mmol/L N 3.5-5.0 Chloride 106 mmol/L N 101-111 Co2 Carbon Dioxide 25 mmol/L N 22-32 Anion Gap 8 mmol/L N 2-11 Glucose 96 mg/dL N 70-100 Blood Urea Nitrogen 17 mg/dL N 6-24 Creatinine 0.86 mg/dL N 0.67-1.17 BUN/Creatinine Ratio 19.8 N 8-20 Calcium 9.0 mg/dL N 8.6-10.3 Egfr Non- 86.2 >60 Egfr 104.3 >60 18 Basic Metabolic Panel 06/29/2017 [facility] Sodium 138 mmol/L N 133- 145 [phone] Potassium 4.2 mmol/L N 3.5-5.0 Chloride 109 mmol/L N 101-111 Co2 Carbon Dioxide 20 mmol/L Low 22-32 Anion Gap 9 mmol/L N 2-11 Glucose 87 mg/dL N 70-100 Blood Urea Nitrogen 33 mg/dL High 6-24 Creatinine 1.04 mg/dL N 0.67-1.17 BUN/Creatinine Ratio 31.7 High 8-20 Calcium 8.9 mg/dL N 8.6-10.3 Egfr Non- 69.3 >60 Egfr 89.1 >60 19 Laboratory test finding 06/29/2017 [facility] Ast (Sgot) 18 U/L N 13- 39 [phone] PSA Screening < 0.008 ng/mL N 0-4.000 20 Basic Metabolic Panel 07/07/2016 [facility] Sodium 138 mmol/L N 133- 145 [phone] Potassium 4.8 mmol/L N 3.5-5.0 Chloride 107 [...] N >60 21 Laboratory test finding 07/07/2016 [facility] Ast (Sgot) 16 U/L N 13- 39 [phone] Lipid Profile 07/07/2016 [facility] Triglycerides 82 mg/dL N 22 (Trig/Chol/HDL) [phone] Cholesterol 212 mg/dL N 23 HDL Cholesterol 62.1 mg/dL N 24 LDL Cholesterol 134 mg/dL N 25 Laboratory test 07/07/2016 [facility] PSA Diagnostic < 0.008 ng/mL N 0-4.000 26 finding [phone] Urine Micro 07/03/2016 In House Ua WBC occ 27 Inhouse Ua RBC 0-2 Ua Casts - Ua Epi 10-12 Ua Other - Ua Glucose - Ua Bilirubin - Ua Ketones - Ua Specific [place] 1.010 Ua Blood Mod [place] Ua PH 6.0 Ua Protein - Ua Urobilinogen - Ua Nitrite - Ua Leukocytes - Basic Metabolic Panel 07/01/2015 [facility] Sodium 139 mmol/L N 133- 145 [phone] Potassium 3.7 mmol/L N 3.5-5.0 Chloride 100 [...] N >60 28 Laboratory test finding 07/01/2015 [facility] Ast (Sgot) 18 U/L N 13- 39 29 [phone] Lipid Profile 07/01/2015 [facility] Triglycerides 115 mg/dL N 30 (Trig/Chol/HDL) [phone] Cholesterol 215 mg/dL N 31 HDL Cholesterol 63.8 mg/dL N 32 LDL Cholesterol 128 mg/dL N 33 Laboratory test 07/01/2015 [facility] PSA Screening < 0.008 ng/mL N 0 -4.000 34 finding [phone] Urine Micro Inhouse 07/01/2015 In House Ua WBC 3-6 Ua RBC - Ua Casts - Ua Epi occ Ua Other - Ua Glucose - Ua Bilirubin - Ua Ketones - Ua Specific [place] 1.005 Ua Blood - Ua PH 6.0 Ua Protein - Ua Urobilinogen - Ua Nitrite - Ua Leukocytes - Basic Metabolic Panel 12/28/2014 [facility] Sodium 138 mmol/L N 133- 145 [phone] Potassium 3.7 mmol/L N 3.5-5.0 Chloride 100 [...] Bilirubin - Ua Ketones - Ua Specific [place] 1.005 Ua Blood - Ua PH 6.0 Ua Protein - Ua Urobilinogen - Ua Nitrite - Ua Leukocytes - Urine Micro Inhouse 12/22/2013 In House Ua WBC - Ua RBC - Ua Casts - Ua Epi - Ua Other - Ua Glucose - Ua Bilirubin - Ua Ketones - Ua Specific [place] 1.005 Ua Blood - Ua PH 5.0 Ua Protein - Ua Urobilinogen - Ua Nitrite - Ua Leukocytes - Laboratory test finding 06/27/2013 In House Occult Blood - Stool neg x3 Urine Micro Inhouse 06/27/2013 In House Ua WBC - Ua RBC - Ua Casts - Ua Epi - Ua Other - Ua Glucose - Ua Bilirubin - Ua Ketones - Ua Specific [place] 1.005 Ua Blood - Ua PH 7.0 Ua Protein - Ua Urobilinogen - Ua Nitrite - Ua Leukocytes - Urine Micro Inhouse 12/26/2012 In House Ua WBC - Ua RBC - Ua Casts - Ua Epi - Ua Other - Ua Glucose - Ua Bilirubin - Ua Ketones - Ua Specific [place] 1.005 Ua Blood - Ua PH 6.0 Ua Protein - Ua Urobilinogen - Ua Nitrite - Ua Leukocytes - Basic Metabolic Panel 12/17/2012 [facility] Sodium 138 mmol/L 133- 145 [phone] Potassium 3.2 mmol/L Low 3.5-5.0 Chloride 102 mmol/L 101-111 Co2 Carbon Dioxide 28.0 mmol/L 22-32 Anion Gap 8.0 mmol/L 2-11 Glucose 84 mg/dL 70-100 Blood Urea Nitrogen 22 mg/dL 6-24 Creatinine 0.90 mg/dL 0.50-1.40 BUN/Creatinine Ratio 24.4 High 8-20 Calcium 9.1 mg/dL 8.1-9.9 Egfr Non- 82.9 >60 Egfr 106.7 >60 36 Laboratory test finding 12/17/2012 [facility] Ast 18 U/L 12-42 [phone] Lipid Profile 12/17/2012 [facility] Triglycerides 91 mg/dL 40-200 (Trig/Chol/HDL) [phone] Cholesterol 221 mg/dL High Less than 200 HDL Cholesterol 58 mg/dL 40-60 37 Cholesterol/HDL Ratio 3.8 Average 1-4.44 LDL Cholesterol 144.8 High Less Than 100 38 Laboratory test finding 12/17/2012 [facility] PSA Diagnostic 0.0 ng/mL 0-4.0 39 [phone] Urine Micro Inhouse 05/31/2012 In House Ua WBC - Ua RBC - Ua Casts - Ua Epi - Ua Other - Ua Glucose - Ua Bilirubin - Ua Ketones - Ua Specific [place] 1.015 Ua Blood - Ua PH 6.0 Ua Protein - Ua Urobilinogen - Ua Nitrite - Ua Leukocytes - Lipid Profile 05/21/2012 [facility] Triglycerides 106 mg/dL 40-200 (Trig/Chol/HDL) [phone] Cholesterol 239 mg/dL High Less than 200 40 HDL Cholesterol 61 mg/dL High 40-60 41 Cholesterol/HDL Ratio 3.9 AVERAGE 1-4.44 LDL Cholesterol 156.8 mg/dL High Less Than 100 42 Laboratory test 05/21/2012 [facility] TSH (Thyroid 1.71 MIU/ML 0.34- 5.60 finding [phone] Stimulating Horm) CBC Auto Diff 05/21/2012 [facility] White Blood Count 6.6 10^3/uL 4.8-10.8 [phone] Red Blood Count 5.08 10^6/uL 4.0-5.4 Hemoglobin [...] Cells % 0.1 Basic Metabolic Panel 05/21/2012 [facility] Sodium 141 mmol/L 133- 145 [phone] Potassium 3.5 mmol/L 3.5-5.0 Chloride 106 mmol/L 101-111 Co2 Carbon Dioxide 29.0 mmol/L 22-32 Anion Gap 6.0 mmol/L 2-11 Glucose 89 mg/dL 70-100 Blood Urea Nitrogen 19 mg/dL 6-24 Creatinine 1.10 mg/dL 0.50-1.40 BUN/Creatinine Ratio 17.3 8-20 Calcium 9.1 mg/dL 8.1-9.9 Egfr Non- 65.8 >60 Egfr 84.6 >60 43 Lipid Profile 05/25/2011 [facility] Triglyceride 88 mg/dL 40-200 (Trig/Chol/HDL) [phone] Cholesterol 225 mg/dL High Less Than 200 44 High Density Lipoprotein 62 mg/dL High 40-60 45 Cholesterol/HDL Ratio 3.63 AVERAGE 1-4.97 Low Density Lipoprotein 145 mg/dL High Less Than 100 46 Laboratory test finding 05/25/2011 [facility] Ast (Sgot) 23 U/L 12- 42 [phone] PSA Screening 0.00 NG/ML 0-4 47 Comp Metabolic Panel 05/25/2011 [facility] Sodium 141 mmol/L 135- 145 [phone] Potassium 3.9 mmol/L 3.5-5.0 Chloride 106 mmol/L [...] > 60 50 CBC Auto Diff 05/25/2011 [facility] White Blood Count 6.7 CUMM 4.8- 10.8 [phone] Red Cell Count 4.98 CUMM 4.6-6.2 Hemoglobin [...] Bilirubin - Ua Ketones - Ua Specific [place] 1.005 Ua Blood - Ua PH 7.0 Ua Protein - Ua Urobilinogen - Ua Nitrite - Ua Leukocytes - Surgical 08/16/2010 [facility] Surgical <SEE 51 Pathology [phone] Pathology NOTE> Comp Metabolic 06/06/2010 [facility] Sodium 139 mmol/L 135-1 Panel [phone] Potassium 3.8 mmol/L 3.5-5.0 Chloride 103 [...] > 60 55 CBC With Electronic 06/06/2010 [facility] White Blood 6.7 CUMM 4.8- 10.8 Diff [phone] Count Red Cell Count 4.95 CUMM 4.6-6.2 [...] Bilirubin - Ua Ketones - Ua Specific [place] 1.005 Ua Blood - Ua PH 6.5 Ua Protein - Ua Urobilinogen - Ua Nitrite - Ua Leukocytes - Laboratory test 04/25/2010 [facility] Erythrocyte Sed Rate 13 MM/HR 0-40 finding [phone] TSH 1.84 MIU/ML 0.34-5.60 CBC With Electronic 04/25/2010 [facility] White Blood 6.5 CUMM 4.8- 10.8 Diff [phone] Count Red Cell Count 4.89 CUMM 4.6-6.2 [...] Basophils 0 0-0.2 Comp Metabolic Panel 04/25/2010 [facility] Sodium 139 mmol/L 135- 145 [phone] Potassium 3.7 mmol/L 3.5-5.0 Chloride 103 mmol/L [...] Bilirubin - Ua Ketones - Ua Specific [place] 1.020 Ua Blood - Ua PH 5.0 Ua Protein - Ua Urobilinogen - Ua Nitrite - Ua Leukocytes - CBC With Electronic 04/22/2009 [facility] White Blood 6.7 CUMM 4.8- 10.8 Diff [phone] Count Red Cell Count 4.87 CUMM 4.6-6.2 [...] Basophils 0 0-0.2 Basic Metabolic Panel 04/22/2009 [facility] Sodium 139 mmol/L 135- 145 [phone] Potassium 4.2 mmol/L 3.5-5.0 Chloride 109 mmol/L 101-111 Co2 (Carbon Dioxide) 25.0 mmol/L 22-32 Anion Gap 5.0 mmol/L 2-11 60 Glucose 90 mg/dL 70-100 61 BUN 24 mg/dL 6-24 Creatinine 0.84 mg/dL 0.50-1.40 One Over Creatinine 1.10 BUN/Creatinine Ratio 28.6 High 8-20 Calcium 8.7 mg/dL 8.1-9.9 62 eGFR Non- 96.6 > 60 eGFR 116.9 > 60 63 Protime W/Inr 04/22/2009 [facility] Inr 1.03 0.86-1.13 64 [phone] Protime 12.5 SEC 10.7-13.6 65 Laboratory test 04/22/2009 [facility] PTT (Aptt) 35.3 25.15-38.53 66 finding [phone] Lipid Profile 04/02/2009 [facility] Triglyceride 96 mg/dL 40-200 67 (Trig/Chol/HDL) [phone] Cholesterol 208 mg/dL High Less Than 200 68 High Density Lipoprotein 52 mg/dL 40-60 69 Cholesterol/HDL Ratio 4.00 AVERAGE 1-4.97 Low Density Lipoprotein 137 mg/dL High Less Than 100 70 Laboratory test finding 04/02/2009 [facility] Ast (Sgot) 19 U/L 12- 42 [phone] PSA Screening 0.0 NG/ML 0-4 71 Comp Metabolic Panel 04/02/2009 [facility] Sodium 138 mmol/L 135- 145 [phone] Potassium 4.0 mmol/L 3.5-5.0 Chloride 110 mmol/L [...] > 60 76 CBC With Electronic 04/02/2009 [facility] White Blood 5.9 CUMM 4.8- 10.8 Diff [phone] Count Red Cell Count 4.85 CUMM 4.6-6.2 [...] Bilirubin - Ua Ketones - Ua Specific [place] 1.030 Ua Blood - Ua PH 5.0 Ua Protein - Ua Urobilinogen - Ua Nitrite - Ua Leukocytes - Laboratory test 03/19/2009 In House Occult Blood - neg x3 finding Stool Laboratory test 08/19/2008 [facility] PSA,Diagnostic 0.00 0-4 77 finding [phone] NG/ML Lipid Panel 09/01/2005 [facility] Cholesterol [...] - Urea Nitrogen 13 CMP Panel 12/01/2004 [facility]. Albumin 4.1 LABORATORY [phone] Alt - SGPT 19 Calcium 9.1 Chloride 109 Creatinine 0.9 Glucose Serum 91 Alkaline Phosphatase 68 Potassium 4.3 Protien Total 7.1 Sodium 142 Ast - Sgot 18 BUN - Urea Nitrogen 22 Lipid Panel 12/01/2004 [facility]. Cholesterol Total 224 High Less Than LABORATORY 200 [phone] Cholesterol/HDL Ratio 3.2 High Density Lipoprotein 70 LDL Low Density Lipoprotein 138 High Less Than 130 Triglycerides 81 CBC W/ Manual Diff 12/01/2004 [facility] White Blood Count 6.7 LABORATORY [phone] RBC Red Blood Count 5.07 Hemoglobin 15.7 Hematocrit 47.4 MCV (Corpuscular Volume) 93.4 MCH (Corpuscular Hemoglobin) 31.0 MCHC (Corpuscular Hemog Conc) 33.1 RDW 13.5 Lipid Profile 02/02/2004 [facility] Cholesterol/HDL 3.49 1-4.97 (Trig/Chol/HDL) [phone] Ratio AVERAGE Cholesterol 199 mg/dL Less Than 200 78 Triglyceride 64 mg/dL 40-200 High Density Lipoprotein 57 mg/dL 40-60 Low Density Lipoprotein 129 mg/dL High Less Than 100 79 Comp Metabolic Panel 02/02/2004 [facility] Anion Gap 6.0 mmol/L 2- 11 80 [phone] Albumin/Globulin Ratio 1.4 1-3 Albumin 3.8 GM/DL [...] Ratio 16.0 8-20 CBC With Electronic 02/02/2004 [facility] White Blood 8.7 CUMM 4.8- 10.8 Diff [phone] Count Abs Basophils 0.1 0-0.2 Abs Eosinophils [...] Serum levels of PSA measured using the Viralize DXI Hybritech immunoassay should not be interpreted [...] levels of PSA measured using the Yoav [employer]uster DXI Hybritech immunoassay should not be interpreted [...] level <0.35 IU/mL. 12 Test Performed by: [address] [address] 13 Normal Range 180 to 914 Indeterminate [...] Serum levels of PSA measured using the Viralize DXI Hybritech immunoassay should not be interpreted [...] Serum levels of PSA measured using the Viralize DXI Hybritech immunoassay should not be interpreted [...] levels of PSA measured using the [employer] DXI Hybritech immunoassay should not be interpreted [...] levels of PSA measured using the Yoav [employer] DXI Hybritech immunoassay should not be interpreted [...] LEVELS OF PSA MEASURED USING THE YOAV Receptor ACCESS HYBRITECH IMMUNOASSAY SHOULD NOT BE INTERPRETED [...] has been shown to interfere with the [place] method for measuring total bilirubin. Samples from [...] (or dialysis) 51 ---- RUN DATE: 08/18/10 [facility] NMI LIVE PAGE 1 RUN TIME: 1525 Specimen Inquiry RUN USER: INTERFACE -- Name: UYN SADLER#: [id number] Status: REG REF Re08/16/10 Age/Sex: 70/M Unit#: [id number] Location: [facility] : 40 -- Specimen: [id number] VARINDER Spec Date: 08/16/[address]: Griffin [...] 08/18/10 1523 -- -- DEPARTMENT OF PATHOLOGY, [address] [place] [address] [facility] Permit #[id number] Reyes Estrada M.D. Director Cecily Concepcion M.D. [facility] Director Dir madi -- 52 Anion gap measurement may be of limited value in the presence of any alkalosis, especially in a combined acid base disorder. . 53 Note change in reference range as of 03/05/08. The change was based on recommendations from the [place] [employer]. 54 A metabolite of Naproxen, [...] change was based on recommendations from the [place] [employer]. 58 A metabolite of Naproxen, [...] change was based on recommendations from the [place] [employer]. 62 Please note change in [...] LEVELS OF PSA MEASURED USING THE YOAV Receptor ACCESS HYBRITECH IMMUNOASSAY SHOULD NOT BE INTERPRETED [...] change was based on recommendations from the [place] [employer]. 74 Please note change in [...] SERUM LEVELS OF PSA MEASURED USING THE [employer] ACCESS HYBRITECH IMMUNOASSAY SHOULD NOT BE INTERPRETED [...] . Procedures Date Code Description Status 07/05/2017 12163 Electrocardiogram Complete Completed 07/03/2016 93100 Electrocardiogram Complete Completed 07/01/2015 83823 Electrocardiogram Complete Completed 06/29/2014 15837 Electrocardiogram Complete Completed 06/27/2013 19504 Electrocardiogram Complete Completed 05/31/2012 27144 Electrocardiogram Complete Completed 08/16/2010 [id number] Colonoscopy Completed 04/25/2010 47578 Anoscopy Diagnostic Completed 09/09/2009 92595 Electrocardiogram Complete Completed 09/09/2009 71049 Electrocardiogram Complete Completed 04/22/2009 30826 Electrocardiogram Complete Completed Encounters Type Date Location [...] Encntr for oth proc for purpose oth [facility] Office Visit 12/30/2015 11:15a Main Office Devendra [...] am - Albino Hawthorne D.O. 

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
[2019-01-28] MEDS ORDERED: Tetan/Diph/Pertus SYR(Tdap)* 0.5 ML SYR(BOOSTRIX) use SYR IM ONE (14:24)
[2019-01-28] MEDS ORDERED: Acetaminophen / Codeine* #3 (300 MG/30 MG) TAB PO ONE (16:37)
[2019-01-28 17:56] VITALS: BP 129/93
== END 2019-01-28 17:55 | disposition home or self-care (01) ==
LOC: ED 11:32
DX: S22.32XA Fracture of one rib, left side, initial encounter for closed fracture (principal); S70.02XA Contusion of left hip, initial encounter; W19.XXXA Unspecified fall, initial encounter; Y92.9 Unspecified place or not applicable; H54.8 Legal blindness, as defined in USA; Z79.899 Other long term (current) drug therapy; Z23 Encounter for immunization
CPT/HCPCS: 70450; 90471; 90715; 93005; 99282; A9270-GY

== ENCOUNTER 2020-04-12 11:06 | Inpatient (IN) ==
[2020-04-12 11:35] LABS: ABS Lymphocytes 0.5 10^3/ul (1.0-4.8); ABS Monocytes 0.3 10^3/ul (0-0.8); ABS Neutrophils 6.6 10^3/ul (1.5-7.7); Hematocrit 50 % (42-52); Hemoglobin 16.6 g/dL (14.0-18.0); Lymphocyte % 7.3 %; Mean Corpuscular HGB Conc 33 g/dL (31-36); Mean Corpuscular Hemoglobin 31 pg (27-31); Mean Corpuscular Volume 94 fL (80-94); Mean Platelet Volume 7.6 fL (7.4-10.4); Platelet Count 292 10^3/uL (150-450); Red Cell Distribution Width 14 % (10-15); White Blood Count 7.5 10^3/uL (3.5-10.8)
[2020-04-12 11:54] LABS: ALT 14 U/L (7-52); AST 18 U/L (13-39); Albumin 4.3 g/dL (3.2-5.2); Albumin/Globulin Ratio 1.2 (1-3); Alkaline Phosphatase 70 U/L (34-104); Anion Gap 11 mmol/L (2-11); BUN/Creatinine Ratio 23.8 (8-20); Blood Urea Nitrogen 34 mg/dL (6-24); CO2 Carbon Dioxide 22 mmol/L (22-32); Calcium 9.5 mg/dL (8.6-10.3); Chloride 102 mmol/L (101-111); EGFR African American 57.7 (>60); EGFR Non-African American 47.7 (>60); Globulin 3.5 g/dL (2-4); Glucose 145 mg/dL (70-100); Potassium 4.4 mmol/L (3.5-5.0); Sodium 135 mmol/L (135-145); Total Protein 7.8 g/dL (6.4-8.9)
[2020-04-12 12:01] LABS: Troponin I 0.15 ng/mL (<0.03)
[2020-04-12] MEDS ORDERED: Iodixanol (CONTRAST) 320 MG/ML 100 ML SDV IV ONE (12:15)
[2020-04-12] MEDS ORDERED: NS 0.9% 500 ml BAG 500 ML IV ONE (14:22)
[2020-04-12] MEDS ORDERED: NS 0.9% 1000 ml BAG 1,000 ML IV.FLUID IV ONE (14:51)
[2020-04-12 15:20] LABS: Troponin I 0.31 ng/mL (<0.03)
[2020-04-12] MEDS ORDERED: cefTRIAXone 1 gm/50 mL NS BAG 1 GM/50 ML BAG IVPB SCH (17:00)
[2020-04-12 18:08] LABS: Urine Appearance Clear; Urine Bilirubin Negative (Negative); Urine Blood Negative (Negative); Urine Color Yellow; Urine Glucose Negative (Negative); Urine Ketones Trace (Negative); Urine Nitrite Negative (Negative); Urine Protein Negative (Negative); Urine Urobilinogen Negative (Negative)
[2020-04-12] MEDS: Azithromycin 500 mg/250 ml NS 500 MG/250 ML BAG IVPB SCH (18:12)
[2020-04-12 19:36] LABS: Urine Specific Gravity > 1.030 (1.010-1.030)
[2020-04-12] MEDS: Senna TAB 8.6 mg TAB PO SCH (19:44)
[2020-04-12] MEDS: Polyethylene Glycol 3350 17 GM PACKET PO SCH (19:44)
[2020-04-12 21:01] LABS: Troponin I 0.76 ng/mL (<0.03)
[2020-04-12] MEDS: Heparin 5000 UNITS/ML 1 mL VIAL SUBCUT SCH (21:04)
[2020-04-12] MEDS: D5W 1/2 NS 1000 ml BAG 1,000 ML IV SCH (21:23)
[2020-04-13 03:23] LABS: Troponin I 0.69 ng/mL (<0.03)
[2020-04-13 05:10] LABS: ABS Basophils 0.1 10^3/ul (0-0.2); ABS Eosinophils 0.1 10^3/ul (0-0.6); ABS Lymphocytes 1.3 10^3/ul (1.0-4.8); ABS Monocytes 0.8 10^3/ul (0-0.8); ABS Neutrophils 5.4 10^3/ul (1.5-7.7); Eosinophil % 1.2 %; Hematocrit 39 % (42-52); Hemoglobin 13.6 g/dL (14.0-18.0); Lymphocyte % 16.7 %; Mean Corpuscular HGB Conc 35 g/dL (31-36); Mean Corpuscular Hemoglobin 32 pg (27-31); Mean Corpuscular Volume 93 fL (80-94); Mean Platelet Volume 7.3 fL (7.4-10.4); Platelet Count 226 10^3/uL (150-450); Red Cell Distribution Width 14 % (10-15); White Blood Count 7.6 10^3/uL (3.5-10.8)
[2020-04-13 05:26] LABS: ALT 12 U/L (7-52); Albumin 3.1 g/dL (3.2-5.2); Albumin/Globulin Ratio 1.2 (1-3); Alkaline Phosphatase 51 U/L (34-104); Blood Urea Nitrogen 19 mg/dL (6-24); CO2 Carbon Dioxide 21 mmol/L (22-32); Calcium 7.9 mg/dL (8.6-10.3); Chloride 107 mmol/L (101-111); EGFR African American 92.5 (>60); EGFR Non-African American 76.5 (>60); Globulin 2.6 g/dL (2-4); Glucose 130 mg/dL (70-100); Magnesium 1.9 mg/dL (1.9-2.7); Phosphorus 3.3 mg/dL (2.5-5.0); Sodium 134 mmol/L (135-145); Total Protein 5.7 g/dL (6.4-8.9)
[2020-04-13 05:37] LABS: Anion Gap 6 mmol/L (2-11)
[2020-04-13] MEDS: cefTRIAXone 1 gm/50 mL NS BAG 1 GM/50 ML BAG IVPB SCH ×2 (06:09→19:58)
[2020-04-13] MEDS: Heparin 5000 UNITS/ML 1 mL VIAL SUBCUT SCH ×3 (06:11→20:32)
[2020-04-13 06:12] LABS: Potassium Redraw 3.9 mmol/L (3.5-5.0)
[2020-04-13] MEDS: D5W 1/2 NS 1000 ml BAG 1,000 ML IV SCH (06:36)
[2020-04-13] MEDS: Senna TAB 8.6 mg TAB PO SCH (08:18)
[2020-04-13] MEDS: Polyethylene Glycol 3350 17 GM PACKET PO SCH ×2 (08:18→19:58)
[2020-04-13] MEDS: Aspirin EC 81 mg TAB.EC (enteric coated) PO SCH (08:18)
[2020-04-13] MEDS: Cholecalciferol (VIT D3) 1,000 unit TAB PO SCH (08:18)
[2020-04-13] MEDS: Azithromycin 500 mg/250 ml NS 500 MG/250 ML BAG IVPB SCH (17:54)
[2020-04-14] MEDS ORDERED: NS 0.9% 1000 ml BAG 1,000 ML IV ONE (03:03)
[2020-04-14] MEDS: Heparin 5000 UNITS/ML 1 mL VIAL SUBCUT SCH ×4 (05:20→22:10)
[2020-04-14] MEDS: cefTRIAXone 1 gm/50 mL NS BAG 1 GM/50 ML BAG IVPB SCH (05:21)
[2020-04-14 06:14] LABS: ABS Basophils 0.1 10^3/ul (0-0.2); ABS Eosinophils 0.2 10^3/ul (0-0.6); ABS Lymphocytes 1.5 10^3/ul (1.0-4.8); ABS Monocytes 0.6 10^3/ul (0-0.8); ABS Neutrophils 4.3 10^3/ul (1.5-7.7); Eosinophil % 2.7 %; Hematocrit 37 % (42-52); Hemoglobin 12.8 g/dL (14.0-18.0); Lymphocyte % 22.8 %; Mean Corpuscular HGB Conc 35 g/dL (31-36); Mean Corpuscular Hemoglobin 33 pg (27-31); Mean Corpuscular Volume 94 fL (80-94); Mean Platelet Volume 7.8 fL (7.4-10.4); Platelet Count 214 10^3/uL (150-450); Red Cell Distribution Width 14 % (10-15); White Blood Count 6.7 10^3/uL (3.5-10.8)
[2020-04-14 06:38] LABS: Albumin 2.9 g/dL (3.2-5.2); Albumin/Globulin Ratio 1.2 (1-3); BUN/Creatinine Ratio 19.8 (8-20); Calcium 7.9 mg/dL (8.6-10.3); EGFR African American 111.2 (>60); EGFR Non-African American 91.9 (>60); Globulin 2.5 g/dL (2-4); Magnesium 1.9 mg/dL (1.9-2.7); Potassium 3.9 mmol/L (3.5-5.0); Total Bilirubin 0.4 mg/dL (0.2-1.0); Total Protein 5.4 g/dL (6.4-8.9)
[2020-04-14] MEDS: Senna TAB 8.6 mg TAB PO SCH (09:36)
[2020-04-14] MEDS: Cholecalciferol (VIT D3) 1,000 unit TAB PO SCH (09:37)
[2020-04-14] MEDS: Aspirin EC 81 mg TAB.EC (enteric coated) PO SCH (09:37)
[2020-04-14] MEDS: Polyethylene Glycol 3350 17 GM PACKET PO SCH ×2 (09:37→22:08)
[2020-04-14] MEDS: Docusate LIQ 100 MG/10 ML UDC PO SCH (09:37)
[2020-04-14] MEDS ORDERED: Enoxaparin 40 MG/0.4 ML SYR SUBCUT SCH (14:00)
[2020-04-15] MEDS: Heparin 5000 UNITS/ML 1 mL VIAL SUBCUT SCH ×3 (05:43→21:56)
[2020-04-15 06:34] LABS: ABS Basophils 0.1 10^3/ul (0-0.2); ABS Eosinophils 0.3 10^3/ul (0-0.6); ABS Lymphocytes 1.9 10^3/ul (1.0-4.8); ABS Monocytes 0.5 10^3/ul (0-0.8); ABS Neutrophils 3.7 10^3/ul (1.5-7.7); Eosinophil % 4.5 %; Hematocrit 41 % (42-52); Lymphocyte % 28.8 %; Mean Corpuscular HGB Conc 35 g/dL (31-36); Mean Corpuscular Hemoglobin 32 pg (27-31); Mean Corpuscular Volume 93 fL (80-94); Mean Platelet Volume 7.2 fL (7.4-10.4); Platelet Count 228 10^3/uL (150-450); Red Blood Count 4.39 10^6 /uL (4.18-5.48); Red Cell Distribution Width 14 % (10-15); White Blood Count 6.4 10^3/uL (3.5-10.8)
[2020-04-15 07:05] LABS: Albumin 3.3 g/dL (3.2-5.2); Albumin/Globulin Ratio 1.2 (1-3); BUN/Creatinine Ratio 15.2 (8-20); Calcium 8.5 mg/dL (8.6-10.3); EGFR African American 114.5 (>60); EGFR Non-African American 94.6 (>60); Globulin 2.8 g/dL (2-4); HDL Cholesterol 51.9 mg/dL; Magnesium 1.9 mg/dL (1.9-2.7); Potassium 4.2 mmol/L (3.5-5.0); Total Bilirubin 0.7 mg/dL (0.2-1.0); Total Protein 6.1 g/dL (6.4-8.9)
[2020-04-15] MEDS: Senna TAB 8.6 mg TAB PO SCH (09:32)
[2020-04-15] MEDS: Cholecalciferol (VIT D3) 1,000 unit TAB PO SCH (09:32)
[2020-04-15] MEDS: Polyethylene Glycol 3350 17 GM PACKET PO SCH ×2 (09:32→21:51)
[2020-04-15] MEDS: Docusate LIQ 100 MG/10 ML UDC PO SCH (09:32)
[2020-04-15] MEDS: Aspirin EC 81 mg TAB.EC (enteric coated) PO SCH (09:33)
[2020-04-16] MEDS: Heparin 5000 UNITS/ML 1 mL VIAL SUBCUT SCH ×2 (05:48→14:31)
[2020-04-16] MEDS: Docusate LIQ 100 MG/10 ML UDC PO SCH (09:39)
[2020-04-16] MEDS: Polyethylene Glycol 3350 17 GM PACKET PO SCH (09:40)
[2020-04-16] MEDS: Senna TAB 8.6 mg TAB PO SCH (09:42)
[2020-04-16] MEDS: Cholecalciferol (VIT D3) 1,000 unit TAB PO SCH (09:43)
[2020-04-16] MEDS: Aspirin EC 325 mg TAB.EC PO SCH (09:47)
[2020-04-16 20:26] LABS: ABS Basophils 0.1 10^3/ul (0-0.2); ABS Eosinophils 0.4 10^3/ul (0-0.6); ABS Lymphocytes 1.7 10^3/ul (1.0-4.8); ABS Monocytes 0.6 10^3/ul (0-0.8); ABS Neutrophils 5.8 10^3/ul (1.5-7.7); Eosinophil % 4.4 %; Hematocrit 45 % (42-52); Hemoglobin 15.6 g/dL (14.0-18.0); Lymphocyte % 19.9 %; Mean Corpuscular HGB Conc 35 g/dL (31-36); Mean Corpuscular Hemoglobin 33 pg (27-31); Mean Corpuscular Volume 94 fL (80-94); Mean Platelet Volume 7.5 fL (7.4-10.4); Platelet Count 257 10^3/uL (150-450); Red Blood Count 4.79 10^6 /uL (4.18-5.48); Red Cell Distribution Width 14 % (10-15); White Blood Count 8.5 10^3/uL (3.5-10.8)
[2020-04-16] MEDS ORDERED: Lorazepam PYXIS KEY PRN (20:31)
[2020-04-16] MEDS ORDERED: Oral Rinse (Biotene)(NF) 237 ML or 473 ML ORAL RINSE BTL MT PRN (20:31)
[2020-04-16 20:37] LABS: BUN/Creatinine Ratio 29.3 (8-20); Calcium 8.8 mg/dL (8.6-10.3); EGFR African American 109.7 (>60); EGFR Non-African American 90.6 (>60); Potassium 4.5 mmol/L (3.5-5.0)
[2020-04-16] MEDS: Morphine 2 MG/ML SYRINGE IV PRN (23:34)
[2020-04-17] MEDS: Morphine 2 MG/ML SYRINGE IV PRN ×2 (03:45→10:22)
[2020-04-17] MEDS: LORazepam 2 mg VIAL 1 ml IV PUSH PRN ×3 (03:48→17:33)
[2020-04-17] MEDS: Cholecalciferol (VIT D3) 1,000 unit TAB PO SCH (10:08)
[2020-04-17] MEDS: Aspirin EC 325 mg TAB.EC PO SCH (10:08)
[2020-04-17] MEDS: Senna TAB 8.6 mg TAB PO SCH (10:09)
[2020-04-17] MEDS: Docusate LIQ 100 MG/10 ML UDC PO SCH (10:09)
[2020-04-17] MEDS ORDERED: SODIUM CHLORIDE IV SCH (15:00)
[2020-04-17] MEDS ORDERED: Scopolamine PATCH Remove NOTE PATCH OFF SCH (15:00)
[2020-04-17] MEDS ORDERED: Morphine PCA 5 MG/ML Titrate per Protocol PCA SCH (15:00)
[2020-04-17] MEDS ORDERED: MORPHINE SULFATE IV SCH (15:00)
[2020-04-18] MEDS: LORazepam 2 mg VIAL 1 ml IV PUSH PRN ×2 (01:45→12:20)
[2020-04-18] MEDS: Aspirin EC 325 mg TAB.EC PO SCH (08:58)
[2020-04-18] MEDS: Cholecalciferol (VIT D3) 1,000 unit TAB PO SCH (08:59)
[2020-04-18] MEDS: Docusate LIQ 100 MG/10 ML UDC PO SCH (08:59)
[2020-04-18] MEDS: Senna TAB 8.6 mg TAB PO SCH (08:59)
[2020-04-19] MEDS: Aspirin EC 325 mg TAB.EC PO SCH (08:26)
[2020-04-19] MEDS: Cholecalciferol (VIT D3) 1,000 unit TAB PO SCH (08:27)
[2020-04-19] MEDS: Senna TAB 8.6 mg TAB PO SCH (08:27)
[2020-04-19] MEDS: Docusate LIQ 100 MG/10 ML UDC PO SCH (08:27)
[2020-04-19] MEDS: Morphine 2 MG/ML SYRINGE IV PRN ×3 (09:55→16:21)
[2020-04-19] MEDS: LORazepam 2 mg VIAL 1 ml IV PUSH PRN (11:05)
[2020-04-20] MEDS: Atropine 1% (ORAL/SL) 15 ML BTL SL PRN ×2 (02:05→11:00)
[2020-04-20] MEDS: LORazepam 2 mg VIAL 1 ml IV PUSH PRN ×3 (10:49→15:40)
[2020-04-20] MEDS: Morphine 2 MG/ML SYRINGE IV PRN ×2 (12:32→15:40)
[2020-04-20] MEDS ORDERED: Morphine PCA ADULT 5 MG/ML 30 ML PCA SCH (16:45)
[2020-04-21] MEDS: LORazepam 2 mg VIAL 1 ml IV PUSH PRN ×2 (10:56→15:27)
[2020-04-22] MEDS: Atropine 1% (ORAL/SL) 15 ML BTL SL PRN ×5 (09:49→23:24)
[2020-04-22] MEDS: LORazepam 2 mg VIAL 1 ml IV PUSH PRN ×2 (20:05→23:20)
[2020-04-22] MEDS: Morphine 2 MG/ML SYRINGE IV PRN ×2 (20:18→23:19)
[2020-04-22 23:49] VITALS: BP 129/70
[2020-04-23] MEDS: Morphine PCA ADULT 5 MG/ML 30 ML PCA SCH (06:09)
[2020-04-23] MEDS: Atropine 1% (ORAL/SL) 15 ML BTL SL PRN ×2 (10:01→23:30)
[2020-04-23] MEDS: Morphine 2 MG/ML SYRINGE IV PRN (23:33)
[2020-04-24] MEDS: LORazepam 2 mg VIAL 1 ml IV PUSH PRN ×3 (00:51→19:53)
[2020-04-24] MEDS: Morphine 2 MG/ML SYRINGE IV PRN ×7 (01:37→23:15)
[2020-04-24] MEDS: Atropine 1% (ORAL/SL) 15 ML BTL SL PRN ×4 (02:18→23:18)
[2020-04-24] MEDS: Morphine PCA ADULT 5 MG/ML 30 ML PCA SCH (11:15)
[2020-04-25] MEDS ORDERED: Morphine ORAL CONCENTRATE 5 MG/0.25 ML ORAL.SYRIN SL PRN (14:23)
[2020-04-25] MEDS: Morphine PCA ADULT 5 MG/ML 30 ML PCA SCH (15:24)
[2020-04-25] MEDS: Atropine 1% (ORAL/SL) 15 ML BTL SL PRN ×3 (17:24→23:01)
[2020-04-25] MEDS: LORazepam 2 mg VIAL 1 ml IV PUSH PRN (17:34)
[2020-04-25] MEDS: Morphine 2 MG/ML SYRINGE IV PRN ×2 (17:35→19:23)
[2020-04-26] MEDS: Morphine 2 MG/ML SYRINGE IV PRN ×3 (01:13→15:32)
[2020-04-26] MEDS: Atropine 1% (ORAL/SL) 15 ML BTL SL PRN (01:14)
[2020-04-26] MEDS: Morphine PCA ADULT 5 MG/ML 30 ML PCA SCH (22:01)
[2020-04-27] MEDS: Morphine 2 MG/ML SYRINGE IV PRN ×3 (09:09→14:05)
[2020-04-27] MEDS ORDERED: LORazepam 2 mg VIAL 1 ml IV PUSH PRN (13:14)
[2020-04-27] MEDS ORDERED: Lorazepam PYXIS KEY PRN (13:14)
[2020-04-27] MEDS: Atropine 1% (ORAL/SL) 15 ML BTL SL PRN (20:25)
[2020-04-28] MEDS: Morphine PCA ADULT 5 MG/ML 30 ML PCA SCH (01:11)
[2020-04-28] MEDS: Atropine 1% (ORAL/SL) 15 ML BTL SL PRN ×2 (01:14→05:49)
== END 2020-04-28 22:10 | disposition expired | DRG 64 ==
LOC: ED 11:06 → ICU 15:31 → MED 04-13 17:38 → MEDTELE 04-14 03:08
PROVIDERS: ADMIT Internal Medicine; ATTEND Internal Medicine